=== PATIENT | female | born 1935 | race Caucasian/White ===

== ENCOUNTER 2017-02-22 16:25 | Observation (INO) ==
[2017-02-22] MEDS ORDERED: NITROGLYCERIN 2% OINT 1 INCH/GM PACK TOP STA (18:02)
[2017-02-22] MEDS ORDERED: ONDANSETRON 4 MG/2 ML VIAL IV STA (18:02)
[2017-02-22] MEDS ORDERED: MORPHINE 2 MG/1 ML SYRINGE IV STA (18:02)
[2017-02-22] MEDS ORDERED: ASPIRIN 325 MG TABLET PO STA (18:02)
[2017-02-22] MEDS ORDERED: ALUM/MAG/SIMETH/LIDO VISC 1:1 30 ML BOTTLE PO STA (18:02)
[2017-02-22 18:24] LABS: Basophils % 0.2 % (0.0-0.8); Eosinophils # 0.2 10*3/uL (0.0-0.87); Eosinophils % 2.7 % (0.00-10.9); Hematocrit 32.1 VOL% (35.7-47.0); Hemoglobin 10.3 GM/DL (12.0-16.0); Immature Granulocytes % 0.5 %; Immature Granulocytes Absolute 0.03 #; Lymphocytes # 0.6 10*3/uL (1.4-4.0); Lymphocytes % 9.4 % (21.3-54.2); Mean Corpuscular HGB Conc 32.1 GM/DL (32-36); Mean Corpuscular Hemoglobin 29 PG (27-34); Mean Corpuscular Volume 90.9 FL (87-102); Mean Platelet Volume 10.8 FL (9.6-12.0); Monocytes # 0.8 10*3/uL (0.11-0.8); Monocytes % 11.9 % (1.7-12.7); Neutrophils # 4.8 10*3/uL (1.4-7.4); Neutrophils % 75.3 % (38.7-73.9); Platelet Count 220 T/CUMM (130-400); Red Blood Count 3.53 MC/CUMM (3.8-5.5); Red Cell Distribution Width 14.7 % (9.3-17.3); White Blood Count 6.4 T/CUMM (4-12)
[2017-02-22] MEDS ORDERED: NITROGLYCERIN 2% OINT 1 INCH/GM PACK TOP ONE (18:28)
[2017-02-22] MEDS ORDERED: ONDANSETRON 4 MG/2 ML VIAL ONE (18:28)
[2017-02-22] MEDS ORDERED: MORPHINE 2 MG/1 ML SYRINGE ONE (18:29)
[2017-02-22] MEDS ORDERED: ASPIRIN 325 MG TABLET ONE (18:29)
[2017-02-22] MEDS ORDERED: ALUM/MAG/SIMETH/LIDO VISC 1:1 30 ML BOTTLE PO ONE (18:29)
[2017-02-22 18:30] LABS: INR 1.1; PT Patient Result 11.3 SECS
[2017-02-22] MEDS ORDERED: ALBUTEROL/IPRATROPIUM 3 ML NEB RESP TX STA (18:33)
[2017-02-22] MEDS ORDERED: FUROSEMIDE 40 MG/4 ML VIAL IV STA (18:33)
[2017-02-22 18:38] LABS: Magnesium 2.1 MG/DL (1.8-2.4)
[2017-02-22 18:45] LABS: Alanine Aminotransferase 12 U/L (13-56); Alkaline Phosphatase 73 U/L (45-117); Aspartate Amino Transferase 10 U/L (0-37); Bilirubin,Total < 0.39 MG/DL (0.2-1.0); Blood Urea Nitrogen 15 MG/DL (7-18); Calcium 8.5 MG/DL (8.5-10.1); Glucose 97 MG/DL (74-106); Osmolality,Calculated 281.3 MOS/KG (273-304); Potassium 4.9 MMOL/L (3.5-5.1); Sodium 141 MMOL/L (136-145); Total Protein 6.5 G/DL (6.4-8.3)
--- NOTE | 2017-02-22 18:45 | XRay Report ---
XR chest 1V portable Indication: Chest pain. Comparison: Chest x-ray 12/19/2016 Technique: Portable AP chest was performed. Findings: Postoperative changes from previous sternotomy appears stable. Borderline to mild cardiomegaly is suggested and appears stable. Atherosclerotic calcification of the aortic knob is stable. Volume loss within the left chest is demonstrated with a small portion of the left upper lobe remaining aerated. Overall appearance has changed little since comparison study. The right lung is clear. Bones and soft tissues demonstrate no evidence of interval change. Impression: 1. Stable interval appearance of the chest. No evidence of active cardiac pulmonary disease. 02/22/2017 6:41 PM PROCEDURE INTERPRETED AT [facility] DEPARTMENT OF RADIOLOGY Final Report Signed by: Dr. Juwan Dunbar
--- NOTE | 2017-02-22 18:46 | Emergency Department Note ---
Lalo Arteaga Manpreet, am scribing for, and in the presence of, Dalton Nation MD 18:16. Rios Arteaga Charles R, MD, personally performed the services described in this documentation, ascribed by Gasper May in my presence, and it is both accurate and complete [id number] . Arrival - Arrival Chief Complaint: Chest Pain Stated Complaint: chest pain ED Nursing Triage Note: Brought in per EMS from [place] with c/o left sided chest pain onset 0300am. Describes as sharp. Denies nausea or shortness of breath. Mode of Arrival: Stretcher Limitations: No Limitations Source: Patient Time Seen by Provider: 02/22/17 17:05 - History of Present Illness HPI Narrative: Pt is an 81 y/o female, with PMHx of CHF, CAD, and HTN, who presents to the ED with CC of CP since 03:00 last night. Pt currently denies CP and states that the pain was similar to her previous episodes of cardiac pain. Pt took her medication at 04:00 last night and is complaint with her medications. Pts rivet driver is Dr. Padgett. No other pains/complaints reported to ED. Onset (ago): hour(s) Consistency: constant Severity: moderate Severity scale (1-10): 4 Date of Last Menstrual Period: hyst Allergies/Adverse Reactions: Allergies Allergy/AdvReac Type Severity Reaction Status Date / Time cephalexin Allergy Severe RASH Verified 02/22/17 16:37 Erythromycin Base Allergy Severe RASH Verified 02/22/17 16:37 Home Medications: Home Medications Medication Instructions Recorded Confirmed Type Atorvastatin [Lipitor] 40 mg PO BEDTIME 07/08/15 11/13/16 History Carvedilol 12.5 mg PO BID W/MEALS 07/08/15 11/13/16 History Clopidogrel [Plavix] 75 mg PO DAILY 07/08/15 11/13/16 History Donepezil [Aricept] 10 mg PO BEDTIME 07/08/15 11/13/16 History Ergocalciferol (Vitamin D2) 1 tablet PO FR@09 07/08/15 11/13/16 History [Vitamin D2] Furosemide 20 mg PO BID 07/08/15 11/13/16 History Gemfibrozil 600 mg PO BID W/MEALS 07/08/15 11/13/16 History Omeprazole 20 mg PO BID 07/08/15 11/13/16 History PARoxetine [Paxil] 20 mg PO DAILY 07/08/15 11/13/16 History Aspirin EC Tab 81 mg PO DAILY 09/15/15 11/13/16 History Acetaminophen Tab [Tylenol Tab] 650 mg PO Q6H PRN #0 tablet 09/16/15 11/13/16 Rx Albuterol Sulfate [Ventolin HFA] 2 puff INH Q6H PRN #1 inhaler 09/16/15 Rx LORazepam [Lorazepam] 1 mg PO BID PRN 01/09/16 11/13/16 History Famotidine Tab [Pepcid Tab] 20 mg PO BID 04/09/16 11/13/16 History Multivitamin (Intrinsic) 1 capsule PO BID 04/09/16 11/13/16 History [Trinsicon] Potassium Chloride Cap/Tab [K Dur] 20 meq PO DAILY 04/09/16 11/13/16 History Clindamycin HCl [Clindamycin Cap] 300 mg PO Q8HR #30 capsule 09/09/16 11/13/16 Rx Lidocaine 5% Patch [Lidoderm 5% 1 patch TRANSDERM DAILY #30 patch 09/09/1611/13 Rx Patch] Naproxen [Naprosyn Tab] 500 mg PO BID #60 tablet 10/14/16 11/13/16 Rx predniSONE TAB [PredniSONE] 20 mg PO DAILY #15 tablet 10/14/16 11/13/16 Rx HYDROcodone/ACETAMIN 5-325 [[place] 1 tablet PO Q6H PRN #20 tablet 11/04/16 Rx 5-325] Methocarbamol Tab [Robaxin Tab] 500 mg PO QID PRN #20 tablet 11/04/16 11/13/16 Rx Tizanidine HCl [Zanaflex] 2 mg PO Q6H #40 capsule 11/13/16 Rx predniSONE TAB [PredniSONE] 20 mg PO DAILY #15 tablet 11/13/16 Rx Review of System - Review of System 12 point system: reviewed and no additional remarkable complaints except as stated - Review of System Constitutional: Absent: chills, diaphoresis, fever, weakness Respiratory: Present: wheezing. Absent: respiratory distress Cardiovascular: Present: chest pain Gastrointestinal: Absent: abdominal pain, nausea, vomiting Musculoskeletal: Absent: arm pain, back pain, lower back pain Medical,Surgical,& Family Hx - Medical History Cardio: History of: CHF, CAD, Hypertension No history of: DC (X2 STENT DR PADGETT) Neurology: History of: Seizures (few in past no know reason) No history of: Dementia HEENT: History of: Eye Problem (MACULAR DEGENERATION) Endocrine: History of: Diabetes Mellitus (NIDDM) (DR TOOK OFF MEDS), Dyslipidemia No history of: Diabetes Mellitus (IDDM) Rheumatology: History of;: Rheumatoid Arthritis Respiratory: History of: Bronchitis, COPD, Respiratory Problems (FLUID L LOER LUNG EMPHYSEMA HX B SCOPE WITH THORACENTESIS) Comment Only: Intubation (only after surgery never very long) Genitourinary: History of: Recurring Urinary Tract Infections Gastrointestinal: History of: GERD, Gastrointestinal Bleed Musculoskeletal: History of: Back/Neck Problems (spinal stenosis), Musculoskeletal Problems Hematology: No history of: Blood Transfusion Reaction Other: History of: Anaphylaxis (KEFLEX ERYTHOMYCIN) No history of: Anesthesia Reactions - Surgical History Cardiac Surgeries: Sugical HX of: Cardiac Catheterization (stents), Cardiac Surgery (CABG) Thoracic Surgeries: Patient denies;: Organ Transplant Neurologic Surgeries: Patient denies: Neurologic Surgery Abdominal Surgeries: Surgical HX of: Appendectomy Reproductive Surgeries: Surgical HX of;: Hysterectomy, Tubal Ligation Orthopedic Surgeries: Surgical HX of;: Total Knee Replacement (LEFT) - Family History Family History: Reports;: Family Cancer (MOM SON), Family Diabetes (MOM), Family Heart Disease (BROTHERS 2), Family Hypertension (MOM 2 BROTHERS SON) - Social History Smoking Status: Never smoker Frequency of Alcohol Use: None Type of Drug Use: None Exam Vital Signs: Vital Signs Temperature 98.3 F 02/22/17 17:56 Pulse Rate 82 02/22/17 19:10 Respiratory Rate 20 02/22/17 19:10 Blood Pressure 246/86 02/22/17 18:30 O2 Sat by Pulse Oximetry 96 02/22/17 19:10 - General General appearance: alert, in no apparent distress - Head Head exam: Present: atraumatic, normocephalic, normal inspection - Eye Eye exam: Present: normal appearance, PERRL, EOMI - ENT ENT exam: Present: normal exam, normal oropharynx, mucous membranes moist, TM's normal bilaterally - Neck Neck exam: Present: normal inspection, full ROM, trachea midline. Absent: tenderness - Chest Chest inspection: Present: normal inspection, symmetric chest wall rise. Absent : tenderness - Respiratory Respiratory exam: Present: rales, wheezes. Absent: normal lung sounds bilaterally, accessory muscle use, respiratory distress - Cardiovascular Cardiovascular exam: Present: regular rate, normal rhythm, normal heart sounds. Absent: murmur, rubs, gallop - Abdominal Exam Abdominal exam: Present: soft. Absent: distention, tenderness, guarding - Extremities Exam Extremities exam: Present: normal inspection, full ROM. Absent: tenderness - Back Exam Back exam: Present: normal inspection, full ROM. Absent: tenderness - Neurological Exam Neurological exam: Present: alert, oriented X3, CN II-XII intact, reflexes normal - Psychiatric Psychiatric exam: Present: normal affect, normal mood - Skin Skin exam: Present: warm, dry, intact, normal color. Absent: pallor Course - Consultations Consultation #1: Hospitalist will admit patient Time: 19:21 Results - Labs CBC & BMP: 02/22/17 16:40 02/22/17 16:40 Lab Results: I have reviewed the patients labs Labs: Laboratory Tests 02/22/17 02/22/17 02/22/17 16:40 16:40 16:40 WBC 6.4 RBC 3.53 L Hgb 10.3 L Hct 32.1 L Neut % (Auto) 75.3 H Lymph % (Auto) 9.4 L Lymph # (Auto) 0.6 L INR PT Patient/Control Mix Sodium 141 Potassium 4.9 Chloride 104 Carbon Dioxide 31 Anion Gap 10.9 ALT 12 L B-Natriuretic Peptide 390 H Albumin 3.0 L Albumin/Globulin Ratio 0.8 L 02/22/17 16:40 WBC RBC Hgb Hct Neut % (Auto) Lymph % (Auto) Lymph # (Auto) INR 1.1 PT Patient/Control Mix 11.3 Sodium Potassium Chloride Carbon Dioxide Anion Gap ALT B-Natriuretic Peptide Albumin Albumin/Globulin Ratio - Diagnostic Findings Procedure: Chest x-ray: report reviewed by me (1. Stable interval appearance of chest. No evidence of active cardiac pulmonary disease.) Critical Care Time Critical Care Time: Yes Total Critical Care Time: 60 Disposition Clinical Impression: Chest pain, COPD (chronic obstructive pulmonary disease), Recurrent left pleural effusion, CAD (coronary artery disease), Pleural effusion, Congestive heart failure Case discussed with: patient Disposition: Still a Patient Condition: Stable Time of Disposition: 19:21
[2017-02-22] MEDS ORDERED: FUROSEMIDE 40 MG/4 ML VIAL ONE (19:09)
[2017-02-22] MEDS ORDERED: FUROSEMIDE 20 MG/2 ML VIAL ONE (19:09)
--- NOTE | 2017-02-22 19:56 | Hospitalist History & Physical ---
Assessment and Plan (1) History of congestive heart failure Status: Acute Current Visit: Yes (2) Chest pain Status: Acute Current Visit: Yes (3) CAD (coronary artery disease) Status: Chronic Current Visit: Yes (4) COPD (chronic obstructive pulmonary disease) Status: Chronic Assessment and plan: Our plan for this patient will be admission to telemetry. We will also order cardiac enzymes every 3 hours 2. We will consult cardiology. I have instructed the nurses to confirm her home medications and alert me when that is available. Will continue home as appropriate. Will continue Nitropaste and full dose aspirin at this time. Current Visit: Yes History of Present Illness Chief complaint: Chest pain History of present illness: Ms. Ibanez is a 81 year old female with past medical history significant for coronary artery disease, hypertension and COPD who was in normal state of health until 3 AM. At that time patient developed chest pain. Patient described sharp in nature and did not radiate. She denies diaphoresis or exertional component. The chest pain resolved. When she told her daughter about it her daughter wanted to have her checked out. She requested she be sent up to the emergency room and I was consulted to admit her. Home Medications Medication Instructions Recorded Confirmed Type Atorvastatin [Lipitor] 40 mg PO BEDTIME 07/08/15 11/13/16 History Carvedilol 12.5 mg PO BID W/MEALS 07/08/15 11/13/16 History Clopidogrel [Plavix] 75 mg PO DAILY 07/08/15 11/13/16 History Donepezil [Aricept] 10 mg PO BEDTIME 07/08/15 11/13/16 History Ergocalciferol (Vitamin D2) 1 tablet PO FR@09 07/08/15 11/13/16 History [Vitamin D2] Furosemide 20 mg PO BID 07/08/15 11/13/16 History Gemfibrozil 600 mg PO BID W/MEALS 07/08/15 11/13/16 History Omeprazole 20 mg PO BID 07/08/15 11/13/16 History PARoxetine [Paxil] 20 mg PO DAILY 07/08/15 11/13/16 History Aspirin EC Tab 81 mg PO DAILY 09/15/15 11/13/16 History Acetaminophen Tab [Tylenol Tab] 650 mg PO Q6H PRN #0 tablet 09/16/15 11/13/16 Rx Albuterol Sulfate [Ventolin HFA] 2 puff INH Q6H PRN #1 inhaler 09/16/15 Rx LORazepam [Lorazepam] 1 mg PO BID PRN 01/09/16 11/13/16 History Famotidine Tab [Pepcid Tab] 20 mg PO BID 04/09/16 11/13/16 History Multivitamin (Intrinsic) 1 capsule PO BID 04/09/16 11/13/16 History [Trinsicon] Potassium Chloride Cap/Tab [K Dur] 20 meq PO DAILY 04/09/16 11/13/16 History Clindamycin HCl [Clindamycin Cap] 300 mg PO Q8HR #30 capsule 09/09/16 11/13/16 Rx Lidocaine 5% Patch [Lidoderm 5% 1 patch TRANSDERM DAILY #30 patch 09/09/1611/13 Rx Patch] Naproxen [Naprosyn Tab] 500 mg PO BID #60 tablet 10/14/16 11/13/16 Rx predniSONE TAB [PredniSONE] 20 mg PO DAILY #15 tablet 10/14/16 11/13/16 Rx HYDROcodone/ACETAMIN 5-325 [[place] 1 tablet PO Q6H PRN #20 tablet 11/04/16 Rx 5-325] Methocarbamol Tab [Robaxin Tab] 500 mg PO QID PRN #20 tablet 11/04/16 11/13/16 Rx Tizanidine HCl [Zanaflex] 2 mg PO Q6H #40 capsule 11/13/16 Rx predniSONE TAB [PredniSONE] 20 mg PO DAILY #15 tablet 11/13/16 Rx Allergies Allergy/AdvReac Type Severity Reaction Status Date / Time cephalexin Allergy Severe RASH Verified 02/22/17 16:37 Erythromycin Base Allergy Severe RASH Verified 02/22/17 16:37 Medical,Surgical,& Family Hx - Medical History Cardio: History of: CHF, CAD, Hypertension No history of: [place] (X2 STENT DR DOOLEY) Neurology: History of: Seizures (few in past no know reason) No history of: Dementia HEENT: History of: Eye Problem (MACULAR DEGENERATION) Endocrine: History of: Diabetes Mellitus (NIDDM) ( TOOK OFF MEDS), Dyslipidemia No history of: Diabetes Mellitus (IDDM) Rheumatology: History of;: Rheumatoid Arthritis Respiratory: History of: Bronchitis, COPD, Respiratory Problems (FLUID L LOER LUNG EMPHYSEMA HX B SCOPE WITH THORACENTESIS) Comment Only: Intubation (only after surgery never very long) Genitourinary: History of: Recurring Urinary Tract Infections Gastrointestinal: History of: GERD, Gastrointestinal Bleed Musculoskeletal: History of: Back/Neck Problems (spinal stenosis), Musculoskeletal Problems Hematology: No history of: Blood Transfusion Reaction Other: History of: Anaphylaxis (KEFLEX ERYTHOMYCIN) No history of: Anesthesia Reactions - Surgical History Cardiac Surgeries: Sugical HX of: Cardiac Catheterization (stents), Cardiac Surgery (CABG) Thoracic Surgeries: Patient denies;: Organ Transplant Neurologic Surgeries: Patient denies: Neurologic Surgery Abdominal Surgeries: Surgical HX of: Appendectomy Reproductive Surgeries: Surgical HX of;: Hysterectomy, Tubal Ligation Orthopedic Surgeries: Surgical HX of;: Total Knee Replacement (LEFT) - Family History Family History: Reports;: Family Cancer (MOM SON), Family Diabetes (MOM), Family Heart Disease (BROTHERS 2), Family Hypertension (MOM 2 BROTHERS SON) - Social History Smoking Status: Never smoker Frequency of Alcohol Use: None Type of Drug Use: None 12 point system: reviewed and no additional remarkable complaints except as stated Exam - Constitutional Vitals: Period Temp Pulse Resp BP Sys/Ramon Pulse Ox Last 24 Hr 98.3 F-98.3 F 65-88 18-20 202-246/83-94 94-97 General appearance: normal weight - Head Head exam: Present: normal inspection - Eye Eye exam: Present: EOMI Pupils: Present: LATONYA - ENT ENT exam: Present: normal exam - Neck Neck exam: Present: normal inspection - Respiratory Respiratory exam: Present: clear to auscultation bilaterally - Cardiovascular Cardiovascular exam: Present: regular rate and rhythm - GI/Abdominal GI/Abdominal exam: Present: normal bowel sounds - Extremities Exam Extremities exam: Present: normal inspection - Back Exam Back exam: Present: normal inspection - Neurological Exam Neurological exam: Present: alert - Psychiatric Psychiatric exam: Present: normal affect, normal mood - Skin Skin exam: Present: normal color Results - Labs CBC & BMP: 02/22/17 16:40 02/22/17 16:40
[2017-02-22 20:24] LABS: Risk Ratio 3.65; VLDL CHOLESTEROL 16.6 MG/DL
[2017-02-22] MEDS ORDERED: hydrALAZINE 20 MG/1 ML VIAL IV ONE (21:33)
--- NOTE | 2017-02-22 22:47 | EKG Report ---
Stationary ECG Study [facility] Test Date: 02/22/2017 10:44:34 PM Pat Name: CARLY VALLADARES Department: Room: 270 Gender: F Integrated Program Teacher: NETTE : 1935 Requested by: Dalton Foster Order Number: [id number] Reading MD: DUARTE ZALDIVAR Intervals [place] Rate: 76 P: 69 [place]: 154 QRS: -51 QRSD: 106 T: -65 QT: 446 QTc: 476 Interpretive Statements SINUS RHYTHM POSSIBLE LEFT ATRIAL ENLARGEMENT MARKED LEFT AXIS DEVIATION INCOMPLETE RIGHT BUNDLE BRANCH BLOCK ST DEVIATION AND MODERATE T-WAVE ABNORMALITY, CONSIDER LATERAL ISCHEMIA ST DEVIATION AND MODERATE T-WAVE ABNORMALITY, CONSIDER INFERIOR ISCHEMIA Electronically Signed On 02-23-17 21:18:24 CDT by DUARTE ZALDIVAR [email or web address]
[2017-02-22] MEDS ORDERED: NAPROXEN 500 MG TABLET PO PRN (23:28)
[2017-02-23] MEDS ORDERED: NITROGLYCERIN 2% OINT 1 INCH/GM PACK TOP SCH
[2017-02-23 00:12] VITALS: BP 235/95
--- NOTE | 2017-02-23 01:01 | Discharge Summary ---
Hospital Course - Hospital Course Hospital Course: Ms. Ibanez is a 81 year old female with past medical history significant for coronary artery disease, hypertension and COPD who was in normal state of health until 3 AM. At that time patient developed chest pain. Patient described sharp in nature and did not radiate. She denies diaphoresis or exertional component. The chest pain resolved. When she told her daughter about it her daughter wanted to have her checked out. She requested she be sent up to the emergency room and I was consulted to admit her. I transferred the patient to telemetry from the ER. Patient got upset for some unknown reason. Patient decided that she wanted to go AMA. She signed the paperwork and was discharged from the hospital Diagnosis - Discharge Diagnosis (1) History of congestive heart failure Status: Acute (2) Chest pain Status: Acute (3) CAD (coronary artery disease) Status: Chronic (4) COPD (chronic obstructive pulmonary disease) Status: Chronic Discharge Plan - Discharge Data Disposition: Left Against Medical Advice - Discharge Medications No Action Atorvastatin [Lipitor] 40 mg PO BEDTIME Carvedilol 12.5 mg PO BID W/MEALS Clopidogrel [Plavix] 75 mg PO DAILY Donepezil [Aricept] 10 mg PO BEDTIME Furosemide 20 mg PO BID Gemfibrozil 600 mg PO BID W/MEALS Omeprazole 20 mg PO BID PARoxetine [Paxil] 20 mg PO DAILY Ergocalciferol (Vitamin D2) [Vitamin D2] 1 tablet PO FR@09 Aspirin EC Tab 81 mg PO DAILY Acetaminophen Tab [Tylenol Tab] 650 mg PO Q6H PRN #0 tablet PRN Reason: Fever > 100.4 Or Headache Albuterol Sulfate [Ventolin HFA] 2 puff INH Q6H PRN #1 inhaler PRN Reason: Shortness Of Breath/Wheezing LORazepam [Lorazepam] 1 mg PO BID PRN PRN Reason: Anxiety Multivitamin (Intrinsic) [Trinsicon] 1 capsule PO BID Potassium Chloride Cap/Tab [K Dur] 20 meq PO DAILY Famotidine Tab [Pepcid Tab] 20 mg PO BID Clindamycin HCl [Clindamycin Cap] 300 mg PO Q8HR #30 capsule Lidocaine 5% Patch [Lidoderm 5% Patch] 1 patch TRANSDERM DAILY #30 patch Naproxen [Naprosyn Tab] 500 mg PO BID #60 tablet HYDROcodone/ACETAMIN 5-325 [[place] 5-325] 1 tablet PO Q6H PRN #20 tablet PRN Reason: Pain Methocarbamol Tab [Robaxin Tab] 500 mg PO QID PRN #20 tablet PRN Reason: Muscle Pain Tizanidine HCl [Zanaflex] 2 mg PO Q6H #40 capsule predniSONE TAB [PredniSONE] 20 mg PO DAILY #15 tablet predniSONE TAB [PredniSONE] 20 mg PO DAILY #15 tablet - Follow Up or Referral - Forms/Instructions Exam - Constitutional Vitals: Period Temp Pulse Resp BP Sys/Raomn Pulse Ox Last 24 Hr 97.2 F 67 20 235/95 90 Discharge Results Labs on day of discharge: Labs from last 24 hours 02/22/17 21:11 Troponin I < 0.015 DS: Provider Date of admission: 02/22/17 19:34 Primary care physician: Leandro Diaz DO Attending physician on admission: Shakeel Mendez MD Consults: 02/22/17 19:51 Consult to Physician [CONS] Routine Comment: Consulting Provider: Cardiology - [facility] Consult to Specialist Group: Cardiology When should Consulting Provider be notified: In am Discharging clinician: Shakeel Mendez MD
--- NOTE | 2017-02-23 08:01 | EKG Report ---
Stationary ECG Study [facility] ER Test Date: 02/22/2017 4:34:51 PM Pat Name: CARLY VALLADARES Department: Room: 270 Gender: F Research Program Internship: DALE Carrera : 1935 Requested by: Dalton Foster Order Number: [id number] Reading MD: VICENTA FRITZ Intervals [place] Rate: 66 P: 66 [place]: 160 QRS: -50 QRSD: 90 T: 105 QT: 436 QTc: 450 Interpretive Statements SINUS RHYTHM aT 66 BPM POSSIBLE LEFT ATRIAL ENLARGEMENT POSSIBLE RIGHT VENTRICULAR CONDUCTION DELAY pr wp LEFTVENTRICULAR HYPERTROPHY AND ST-T CHANGE Electronically Signed On 02-23-17 12:25:38 CDT by VICENTA FRITZ [email or web address]
[2017-02-23] MEDS ORDERED: ASPIRIN 325 MG TABLET PO SCH (09:00)
[2017-02-23] MEDS ORDERED: PANTOPRAZOLE 40 MG TABLET PO SCH (09:00)
== END 2017-02-23 00:30 | disposition left against medical advice (07) ==
LOC: EDBD → EDUNIT# → N.ED 16:25 → N.EDINP 16:25 → N.TELES 19:56
PROVIDERS: ADMIT Internal Medicine; ATTEND Internal Medicine

== ENCOUNTER 2017-03-10 03:23 | Inpatient (IN) ==
[2017-03-10] MEDS ORDERED: ONDANSETRON 4 MG/2 ML VIAL IV STA (03:55)
[2017-03-10] MEDS ORDERED: SODIUM CHLORIDE 0.9% 500 ML IV STA (03:55)
[2017-03-10] MEDS ORDERED: PANTOPRAZOLE 40 MG VIAL IV STA (03:55)
--- NOTE | 2017-03-10 03:58 | Emergency Department Note ---
Dung Arteaga Hilary, am scribing for, and in the presence of, Dalton Nation MD 03:55. Rios Arteaga Charles R, MD, personally performed the services described in this documentation, ascribed by Huma Razo in my presence, and it is both accurate and complete 357 . Arrival - Arrival Chief Complaint: GI Bleed/Rectal Stated Complaint: nausea vomiting ED Nursing Triage Note: Patient to room via ems with c/o N/V/D x 6 days. She thinks it is food posion from some bad soup she ate. Mode of Arrival: Stretcher Limitations: No Limitations Source: Patient, RN Notes Reviewed Time Seen by Provider: 03/10/17 03:41 - History of Present Illness HPI Narrative: Pt is a 81 y/o white female brought into the ED via EMS for c/o bloody diarrhea which onset today after dinner. Pt reports eating minestrone soup at assisted living at [facility] and then noticed blood and diarrhea. She confirms abdominal pain and blood in diarrhea but denies chest pain. No other complaints or problems stated in the ED. Onset (ago): hour(s) Consistency: constant Allergies/Adverse Reactions: Allergies Allergy/AdvReac Type Severity Reaction Status Date / Time cephalexin Allergy Severe RASH Verified 03/10/17 03:29 Erythromycin Base Allergy Severe RASH Verified 03/10/17 03:29 Home Medications: Home Medications Medication Instructions Recorded Confirmed Type Atorvastatin [Lipitor] 40 mg PO BEDTIME 07/08/15 03/10/17 History Carvedilol 12.5 mg PO BID W/MEALS 07/08/15 03/10/17 History Clopidogrel [Plavix] 75 mg PO DAILY 07/08/15 03/10/17 History Donepezil [Aricept] 10 mg PO BEDTIME 07/08/15 03/10/17 History Ergocalciferol (Vitamin D2) 1 tablet PO FR@09 07/08/15 03/10/17 History [Vitamin D2] Furosemide 20 mg PO DAILY 07/08/15 03/10/17 History Omeprazole 20 mg PO BID 07/08/15 03/10/17 History PARoxetine [Paxil] 20 mg PO DAILY 07/08/15 03/10/17 History Famotidine Tab [Pepcid Tab] 20 mg PO BID 04/09/16 03/10/17 History Potassium Chloride Cap/Tab [K Dur] 20 meq PO DAILY 04/09/16 03/10/17 History Clindamycin HCl [Clindamycin Cap] 600 mg PO BID W/MEALS 03/10/17 03/10/17 History Gemfibrozil [Lopid] 600 mg PO BID W/MEALS 03/10/17 03/10/17 History Lisinopril 10 mg PO DAILY 03/10/17 03/10/17 History Mirabegron [Myrbetriq] 50 mg PO DAILY 03/10/17 03/10/17 History Trimethoprim 100 mg PO DAILY 03/10/17 03/10/17 History Review of System - Review of System 12 point system: reviewed and no additional remarkable complaints except as stated - Review of System Constitutional: Absent: fever Gastrointestinal: Present: abdominal pain, diarrhea, hematochezia Medical,Surgical,& Family Hx - Medical History Cardio: History of: CHF, CAD, Hypertension Comment Only: [place] (X2 STENT DR DOOLEY) Neurology: History of: Seizures (few in past no know reason) No history of: Dementia HEENT: History of: Eye Problem (MACULAR DEGENERATION) Endocrine: History of: Diabetes Mellitus (NIDDM) ( TOOK OFF MEDS), Dyslipidemia No history of: Diabetes Mellitus (IDDM) Rheumatology: History of;: Rheumatoid Arthritis Respiratory: History of: Bronchitis, COPD, Respiratory Problems (FLUID L LOER LUNG EMPHYSEMA HX B SCOPE WITH THORACENTESIS) Comment Only: Intubation (only after surgery never very long) Genitourinary: History of: Recurring Urinary Tract Infections Gastrointestinal: History of: GERD, Gastrointestinal Bleed Musculoskeletal: History of: Back/Neck Problems (spinal stenosis), Musculoskeletal Problems Hematology: No history of: Blood Transfusion Reaction Other: History of: Anaphylaxis (KEFLEX ERYTHOMYCIN) No history of: Anesthesia Reactions - Surgical History Cardiac Surgeries: Sugical HX of: Cardiac Catheterization (stents), Cardiac Surgery (CABG) Neurologic Surgeries: Patient denies: Neurologic Surgery Abdominal Surgeries: Surgical HX of: Appendectomy Reproductive Surgeries: Surgical HX of;: Hysterectomy, Tubal Ligation Orthopedic Surgeries: Surgical HX of;: Total Knee Replacement (LEFT) - Family History Family History: Reports;: Family Cancer (MOM SON), Family Diabetes (MOM), Family Heart Disease (BROTHERS 2), Family Hypertension (MOM 2 BROTHERS SON) - Social History Smoking Status: Never smoker Frequency of Alcohol Use: None Type of Drug Use: None Exam Vital Signs: Vital Signs Temperature 98.3 F 03/10/17 03:24 Pulse Rate 78 03/10/17 03:24 Respiratory Rate 20 03/10/17 03:24 Blood Pressure 134/72 03/10/17 03:24 O2 Sat by Pulse Oximetry 93 L 03/10/17 03:24 - General General appearance: alert, in no apparent distress - Head Head exam: Present: atraumatic, normocephalic - Eye Eye exam: Present: PERRL, EOMI. Absent: normal appearance (pale conjuctival) - ENT ENT exam: Present: mucous membranes moist, TM's normal bilaterally. Absent: mucous membranes dry - Neck Neck exam: Present: full ROM, trachea midline. Absent: tenderness - Chest Chest inspection: Present: symmetric chest wall rise. Absent: tenderness - Respiratory Respiratory exam: Present: normal lung sounds bilaterally. Absent: respiratory distress - Cardiovascular Cardiovascular exam: Present: normal rhythm, tachycardia, normal heart sounds. Absent: murmur, rubs, gallop - Abdominal Exam Abdominal exam: Present: soft, hyperactive bowel sounds. Absent: distention, tenderness - Rectal Exam Rectal exam: Present: other (grossly heme + per look and smell) - Extremities Exam Extremities exam: Present: full ROM. Absent: tenderness - Back Exam Back exam: Present: full ROM. Absent: tenderness - Neurological Exam Neurological exam: Present: alert, oriented X3, CN II-XII intact. Absent: motor sensory deficit - Psychiatric Psychiatric exam: Present: normal affect, normal mood - Skin Skin exam: Present: warm, dry, intact, normal color. Absent: rash Course - Consultations Consultation #1: Hospitalist will admit patient Time: 05:38 Results - Labs CBC & BMP: 03/10/17 04:09 03/10/17 04:09 Lab Results: I have reviewed the patients labs Labs: Laboratory Tests 03/10/17 04:09 WBC 12.5 H RBC 3.32 L Hgb 9.5 L Hct 30.2 L MCHC 31.5 L Neut % (Auto) 88.7 H Lymph % (Auto) 4.9 L Neut # (Auto) 11.1 H Lymph # (Auto) 0.6 L Disposition Clinical Impression: GI bleed, Recurrent left pleural effusion, History of congestive heart failure , Lower gastrointestinal hemorrhage, Acute blood loss anemia Case discussed with: patient Disposition: Still a Patient Condition: Stable
[2017-03-10 04:25] LABS: Basophils % 0.1 % (0.0-0.8); Eosinophils % 0.2 % (0.00-10.9); Hematocrit 30.2 VOL% (35.7-47.0); Hemoglobin 9.5 GM/DL (12.0-16.0); Immature Granulocytes % 1.4 %; Immature Granulocytes Absolute 0.17 #; Lymphocytes # 0.6 10*3/uL (1.4-4.0); Lymphocytes % 4.9 % (21.3-54.2); Mean Corpuscular HGB Conc 31.5 GM/DL (32-36); Mean Corpuscular Hemoglobin 29 PG (27-34); Mean Platelet Volume 10.1 FL (9.6-12.0); Monocytes # 0.6 10*3/uL (0.11-0.8); Monocytes % 4.7 % (1.7-12.7); Neutrophils # 11.1 10*3/uL (1.4-7.4); Neutrophils % 88.7 % (38.7-73.9); Platelet Count 286 T/CUMM (130-400); Red Blood Count 3.32 MC/CUMM (3.8-5.5); Red Cell Distribution Width 15.2 % (9.3-17.3); White Blood Count 12.5 T/CUMM (4-12)
[2017-03-10 04:34] LABS: PT Patient Result 11.1 SECS
[2017-03-10] MEDS ORDERED: ALBUTEROL 2.5 MG/3 ML NEB RESP TX PRN (04:44)
[2017-03-10 04:47] LABS: Alanine Aminotransferase 16 U/L (13-56); Albumin 2.9 G/DL (3.4-5.0); Alkaline Phosphatase 65 U/L (45-117); Aspartate Amino Transferase 6 U/L (0-37); Band Neutrophils 1 % (0-10); Bilirubin,Total < 0.39 MG/DL (0.2-1.0); Blood Urea Nitrogen 29 MG/DL (7-18); Calcium 7.8 MG/DL (8.5-10.1); Glucose 146 MG/DL (74-106); Lymphocytes 6 % (20-55); Magnesium 1.8 MG/DL (1.8-2.4); Myelocytes 1 %; Potassium 5.3 MMOL/L (3.5-5.1); Segmented Neutrophils 89 % (50-85); Sodium 143 MMOL/L (136-145); Total Cells Counted 100; Total Protein 5.9 G/DL (6.4-8.3); Troponin I Only < 0.015 NG/ML (0.00-0.045)
[2017-03-10 04:49] LABS: Ammonia 25 UMOL/L (11-32); Ovalocytes Few; Platelet Estimate Normal
--- NOTE | 2017-03-10 04:52 | Hospitalist History & Physical ---
Assessment and Plan (1) CAD (coronary artery disease) Status: Chronic Current Visit: No (2) COPD (chronic obstructive pulmonary disease) Status: Chronic Current Visit: No (3) Lower gastrointestinal hemorrhage Status: Acute Current Visit: No (4) Acute blood loss anemia Status: Acute Current Visit: No (5) History of congestive heart failure Status: Acute Assessment and plan: Our plan for this patient will include admission to ICU. Monitor H&H every 4 hours. Transfuse as needed. We will consult GI for their evaluation. Patient will be placed on a clear liquid diet. Vital signs are currently stable heart rate is not accelerated. Patient has a history of congestive heart failure will not schedule her on maintenance fluids. Will need to follow-up on her chemistry which is not available at the time of this dictation Current Visit: No History of Present Illness Chief complaint: Bloody diarrhea History of present illness: Ms. Ibanez is a 81 year old female was in her normal state of health until tonight. Patient ate some soup and sandwich. Soon thereafter she started noticing bloody diarrhea. She has been having some abdominal cramping. She denies chest pain and no really other complaints at this time. I was consulted to admit her through the emergency room. Home Medications Medication Instructions Recorded Confirmed Type Atorvastatin [Lipitor] 40 mg PO BEDTIME 07/08/15 11/13/16 History Carvedilol 12.5 mg PO BID W/MEALS 07/08/15 11/13/16 History Clopidogrel [Plavix] 75 mg PO DAILY 07/08/15 11/13/16 History Donepezil [Aricept] 10 mg PO BEDTIME 07/08/15 11/13/16 History Ergocalciferol (Vitamin D2) 1 tablet PO 07/08/15 11/13/16 History [Vitamin D2] Furosemide 20 mg PO BID 07/08/15 11/13/16 History Omeprazole 20 mg PO BID 07/08/15 11/13/16 History PARoxetine [Paxil] 20 mg PO DAILY 07/08/15 11/13/16 History Famotidine Tab [Pepcid Tab] 20 mg PO BID 04/09/16 11/13/16 History Potassium Chloride Cap/Tab [K Dur] 20 meq PO DAILY 04/09/16 11/13/16 History Clindamycin HCl [Clindamycin Cap] 600 mg PO BID W/MEALS 03/10/17 03/10/17 History Gemfibrozil [Lopid] 600 mg PO BID W/MEALS 03/10/17 03/10/17 History Lisinopril 10 mg PO DAILY 03/10/17 03/10/17 History Mirabegron [Myrbetriq] 50 mg PO DAILY 03/10/17 03/10/17 History Trimethoprim 100 mg PO DAILY 03/10/17 03/10/17 History Allergies Allergy/AdvReac Type Severity Reaction Status Date / Time cephalexin Allergy Severe RASH Verified 03/10/17 03:29 Erythromycin Base Allergy Severe RASH Verified 03/10/17 03:29 Medical,Surgical,& Family Hx - Medical History Cardio: History of: CHF, CAD, Hypertension Comment Only: [place] (X2 STENT DR DOOLEY) Neurology: History of: Seizures (few in past no know reason) No history of: Dementia HEENT: History of: Eye Problem (MACULAR DEGENERATION) Endocrine: History of: Diabetes Mellitus (NIDDM) (DR TOOK OFF MEDS), Dyslipidemia No history of: Diabetes Mellitus (IDDM) Rheumatology: History of;: Rheumatoid Arthritis Respiratory: History of: Bronchitis, COPD, Respiratory Problems (FLUID L LOER LUNG EMPHYSEMA HX B SCOPE WITH THORACENTESIS) Comment Only: Intubation (only after surgery never very long) Genitourinary: History of: Recurring Urinary Tract Infections Gastrointestinal: History of: GERD, Gastrointestinal Bleed Musculoskeletal: History of: Back/Neck Problems (spinal stenosis), Musculoskeletal Problems Hematology: No history of: Blood Transfusion Reaction Other: History of: Anaphylaxis (KEFLEX ERYTHOMYCIN) No history of: Anesthesia Reactions - Surgical History Cardiac Surgeries: Sugical HX of: Cardiac Catheterization (stents), Cardiac Surgery (CABG) Neurologic Surgeries: Patient denies: Neurologic Surgery Abdominal Surgeries: Surgical HX of: Appendectomy Reproductive Surgeries: Surgical HX of;: Hysterectomy, Tubal Ligation Orthopedic Surgeries: Surgical HX of;: Total Knee Replacement (LEFT) - Family History Family History: Reports;: Family Cancer (MOM SON), Family Diabetes (MOM), Family Heart Disease (BROTHERS 2), Family Hypertension (MOM 2 BROTHERS SON) - Social History Smoking Status: Never smoker Frequency of Alcohol Use: None Type of Drug Use: None 12 point system: reviewed and no additional remarkable complaints except as stated Exam - Constitutional Vitals: Period Temp Pulse Resp BP Sys/Ramon Pulse Ox Last 24 Hr 98.3 F-98.3 F 78-78 20-20 134-134/72-72 93 - General General appearance: alert, in no apparent distress - Head Head exam: Present: atraumatic, normocephalic - Eye Eye exam: Present: PERRL, EOMI. - ENT ENT exam: Present: mucous membranes moist, TM's normal bilaterally. - Neck Neck exam: Present: full ROM, trachea midline. - Chest Chest inspection: Present: symmetric chest wall rise. - Respiratory Respiratory exam: Present: normal lung sounds bilaterally. - Cardiovascular Cardiovascular exam: Present: normal rhythm, tachycardia, normal heart sounds. - Abdominal Exam Abdominal exam: Present: soft, hyperactive bowel sounds. - Rectal Exam Rectal exam: Present: Grossly bloody with a prominent smell consistent with GI bleeding - Extremities Exam Extremities exam: Present: full ROM. - Back Exam Back exam: Present: full ROM. - Neurological Exam Neurological exam: Present: alert, oriented X3, CN II-XII intact. - Psychiatric Psychiatric exam: Present: normal affect, normal mood - Skin Skin exam: Present: warm, dry, intact, normal color. Results - Labs CBC & BMP: 03/10/17 04:09
[2017-03-10] MEDS ORDERED: SODIUM CHLORIDE 0.9% 1,000 ML IV SCH (05:00)
--- NOTE | 2017-03-10 05:15 | EKG Report ---
Stationary ECG Study [facility] ER Test Date: 03/10/2017 4:13:25 AM Pat Name: CARLY VALLADARES Department: Room: Gender: F Housekeeping Assistant: : 1935 Requested by: Dalton Foster Order Number: [id number] Reading MD: KENNEDY DOOLEY Intervals Crane Rate: 68 P: 31 MD: 147 QRS: -33 QRSD: 82 T: 176 QT: 448 QTc: 465 Interpretive Statements SINUS RHYTHM WITH SINUS ARRHYTHMIA POSSIBLE LEFT ATRIAL ENLARGEMENT MARKED LEFT AXIS DEVIATION POSSIBLE RIGHT VENTRICULAR CONDUCTION DELAY LEFT VENTRICULAR HYPERTROPHY AND ST-T CHANGE Electronically Signed On 03-10-17 16:11:29 CDT by KENNEDY DOOLEY [email or web address]
[2017-03-10] MEDS ORDERED: ONDANSETRON 4 MG/2 ML VIAL ONE (05:24)
[2017-03-10] MEDS ORDERED: PANTOPRAZOLE 40 MG VIAL IV ONE (05:24)
[2017-03-10 05:55] LABS: Hemoglobin 8.4 GM/DL (12.0-16.0)
--- NOTE | 2017-03-10 07:12 | XRay Report ---
XR abdomen 2V Indication: Generalized abdominal pain, GI bleed Comparison: Abdominal x-ray dated July 30, 2015 Technique: Frontal views of the abdomen in the supine and left lateral decubitus position. Findings: Chest will be described in a separate dictation. Nonspecific nonobstructive bowel gas pattern. No free intraperitoneal air. Diffuse osteopenia. S-shaped curvature of the spine with multilevel degenerative change. There is suggestion of osseous fusion of the mid lumbar spine. IMPRESSION: No acute abnormality demonstrated. PROCEDURE INTERPRETED AT [facility] DEPARTMENT OF RADIOLOGY Final Report Signed by: Dr Irvin Peng
--- NOTE | 2017-03-10 07:44 | XRay Report ---
XR chest 1V portable Indication: SOB Comparison: Chest x-ray dated February 22, 2017 Technique: Single frontal view of the chest. Findings: Continued cardiomegaly status post sternotomy. Volume loss within the left chest again demonstrated. There is again grossly stable left mid and lower lung pleural-parenchymal abnormality. Visualized osseous and surrounding soft tissue structures appear grossly unchanged. IMPRESSION: No significant change from February 22, 2017. PROCEDURE INTERPRETED AT [facility] DEPARTMENT OF RADIOLOGY Final Report Signed by: Dr Irvin Peng
[2017-03-10 09:14] LABS: Hematocrit 24.5 VOL% (35.7-47.0); Hemoglobin 7.6 GM/DL (12.0-16.0)
[2017-03-10] MEDS: PANTOPRAZOLE 40 MG VIAL IV SCH ×2 (09:38→21:04)
--- NOTE | 2017-03-10 10:33 | Hospitalist Progress Note ---
Assessment and Plan - Time spent with patient Time spent with patient: Greater than 30 minutes (1) Lower gastrointestinal hemorrhage Status: Acute Assessment and plan: Hold plavix. Consult GI. Monitor H/H, transfuse if needed. Clear liquid diet. Current Visit: Yes (2) Acute blood loss anemia Status: Acute Assessment and plan: Hold plavix. Monitor H/H, transfuse as needed. Current Visit: Yes (3) COPD (chronic obstructive pulmonary disease) Status: Chronic Assessment and plan: Resume home meds Current Visit: No (4) Hyperlipidemia Status: Chronic Assessment and plan: Continue home meds. Current Visit: No (5) Congestive heart failure Status: Acute Assessment and plan: Continue home meds Current Visit: No (6) Hearing loss Status: Acute Current Visit: No Qualifiers: Laterality: bilateral Qualified Code(s): H91.93 - Unspecified hearing loss , bilateral Hospitalist: Subjective Interval history: Had 4 bloody loose bowel movement 4 times since this adm per report from pt. Deny fever, dizziness, chest pain or abd pain. Type & screen ordered. Exam - Constitutional Vitals: Period Temp Pulse Resp BP Sys/Ramon Pulse Ox Last 24 Hr 97.9 F-98.3 F 61-83 12-20 94-148/49-95 93-97 Exam: GENERAL: NAD, AAOx3 Pale.. HEENT: Pupils equally round and reactive to light, conjunctivae clear. TMs posadas and translucent. Normal lips, teeth and gums. NECK: Supple without mass. HEART: RRR, no murmur. CHEST: Normal shape, good air movement, no retractions. CV: RRR, no murmurs, 2+ peripheral pulses LUNGS: Clear to auscultation; no rales, rhonchi, or wheezes. ABDOMEN: Soft, nontender, and no hepatosplenomegaly. SKIN: No rash or edema. Pale LYMPH: No anterior or posterior cervical, or supraclavicular lymphadenopathy. NEURO: No gross motor deficits noted. Results - Labs CBC & BMP: 03/10/17 09:05 03/10/17 04:09 - Diagnostic Findings Procedure: Chest x-ray: other (Reviewed by me.)
--- NOTE | 2017-03-10 13:58 | Gastrointestinal Consult Note ---
Assessment and Plan (1) Lower gastrointestinal hemorrhage Status: Acute Assessment and plan: This is likely due to a diverticular bleed most likely in the right colon. The patient is due to get a tagged red blood cell scan which should demonstrate this , provided she is adequately bleeding to the threshold level. If she appears to have an early positive scan we may ask interventional radiology to consider doing arteriography in order to embolize the vessel directly. The patient has had 16 bowel movements in the last 23 hours. She has dropped her hematocrit down to 24% although she is being transfused now. She does not have colon cancer on her last colonoscopy done in March 2016, almost exactly a year ago. There is a possibility this may be an acute upper GI bleed however the patient is nauseous but not vomiting and I suspect she would have vomiting if this were the bleeding source. We will continue to monitor her in the ICU setting and transfuse as needed. Hematocrit and hemoglobins are being obtained after an appropriate time interval. Surgery remains an option but will hold off on this until we see how she does with bleeding scan and potentially arteriography. Current Visit: Yes (2) Acute blood loss anemia Status: Acute Assessment and plan: Patient is dropped her hematocrit from her baseline down to 24.5 percent. We will continue to watch for further drops and transfuse appropriately. The patient is getting a 2 unit transfusion at this time as well. I do not anticipate having to do a repeat colonoscopy. Current Visit: Yes (3) Personal history of colonic polyps Status: Acute Assessment and plan: I am going to have to research exactly what type of polyps these were upon removal. This will determine how quickly the patient needs repeat colonoscopy. Current Visit: Yes (4) GERD (gastroesophageal reflux disease) Status: Acute Assessment and plan: The patient's symptoms of reflux are rather minimal, we will cover her with some Protonix on at least a daily basis. Current Visit: Yes (5) Diverticulosis Status: Acute Assessment and plan: Probably the source the patient's current bleeding. She may ultimately require surgery if the bleeding cannot be brought under control with more conservative measures. Current Visit: Yes History of Present Illness Chief complaint: Probable lower GI bleed with hematocrit dropped to 24%. History of present illness: Ms. Ibanez is a 81 year old female who was seen by me back on 03/11/16 for what appeared to be a lower GI bleed in association with her pandiverticulosis at that time she did undergo colonoscopy on 03/12/16 after her hematocrit dropped down to 24% similar to her situation at this time. She was in her state of usual health up until about 3 PM yesterday afternoon when she ate some soup and a sandwich and started developing painless lower GI bleeding which started as bright red and became quite voluminous she had 4 episodes of bleeding at home 6 more in the emergency room when brought to the hospital and was admitted to the ICU at about 3 AM last night and has had another 5 bloody bowel movements this morning. She is not having undue cramping or pain with this. She is not having any fevers or chills. She denies intake of unusual foods such as steak tar tar, raw oysters or sushi. She has not had any interim episodes since last I saw her approximately a year ago. Her colonoscopy did demonstrate some polyps --but I do not see a pathology report in the computer for these though hot biopsies were obtained. I will need to research this further. Otherwise the patient is doing fairly well although she is feeling somewhat weak and dizzy. Her hematocrit has dropped down to 24.5 %. There is no family history of colon cancer polyps. The patient's primary care provider is Dr. Carson Diaz. She does have some underlying reflux for which she takes omeprazole. Home Medications Medication Instructions Recorded Confirmed Type Atorvastatin [Lipitor] 40 mg PO BEDTIME 07/08/15 03/10/17 History Carvedilol 12.5 mg PO BID W/MEALS 07/08/15 03/10/17 History Clopidogrel [Plavix] 75 mg PO DAILY 07/08/15 03/10/17 History Donepezil [Aricept] 10 mg PO BEDTIME 07/08/15 03/10/17 History Ergocalciferol (Vitamin D2) 1 tablet PO FR@07/08/15 03/10/17 History [Vitamin D2] Furosemide 20 mg PO DAILY 07/08/15 03/10/17 History Omeprazole 20 mg PO BID 07/08/15 03/10/17 History PARoxetine [Paxil] 20 mg PO DAILY 07/08/15 03/10/17 History Famotidine Tab [Pepcid Tab] 20 mg PO BID 04/09/16 03/10/17 History Potassium Chloride Cap/Tab [K Dur] 20 meq PO DAILY 04/09/16 03/10/17 History Clindamycin HCl [Clindamycin Cap] 600 mg PO BID W/MEALS 03/10/17 03/10/17 History Gemfibrozil [Lopid] 600 mg PO BID W/MEALS 03/10/17 03/10/17 History Lisinopril 10 mg PO DAILY 03/10/17 03/10/17 History Mirabegron [Myrbetriq] 50 mg PO DAILY 03/10/17 03/10/17 History Trimethoprim 100 mg PO DAILY 03/10/17 03/10/17 History Allergies Allergy/AdvReac Type Severity Reaction Status Date / Time cephalexin Allergy Severe RASH Verified 03/10/17 03:29 Erythromycin Base Allergy Severe RASH Verified 03/10/17 03:29 Medical,Surgical,& Family Hx - Medical History Cardio: History of: CHF, CAD, Hypertension, NM (X2 STENT DR DOOLEY) Neurology: History of: Seizures (few in past no know reason) No history of: Dementia HEENT: History of: Eye Problem (MACULAR DEGENERATION) Endocrine: History of: Diabetes Mellitus (NIDDM) ( TOOK OFF MEDS), Dyslipidemia No history of: Diabetes Mellitus (IDDM) Rheumatology: History of;: Rheumatoid Arthritis Respiratory: History of: Bronchitis, COPD, Intubation (only after surgery never very long), Respiratory Problems (FLUID L LOER LUNG EMPHYSEMA HX B SCOPE WITH THORACENTESIS) Genitourinary: History of: Recurring Urinary Tract Infections Gastrointestinal: History of: GERD, Gastrointestinal Bleed Musculoskeletal: History of: Back/Neck Problems (spinal stenosis), Musculoskeletal Problems (frequent Right shoulder dislocation) Hematology: No history of: Blood Transfusion Reaction Other: History of: Anaphylaxis (KEFLEX ERYTHOMYCIN) No history of: Anesthesia Reactions - Surgical History Cardiac Surgeries: Sugical HX of: Cardiac Catheterization (stents), Cardiac Surgery (CABG x 3) Neurologic Surgeries: Patient denies: Neurologic Surgery Abdominal Surgeries: Surgical HX of: Appendectomy Reproductive Surgeries: Surgical HX of;: Hysterectomy, Tubal Ligation Orthopedic Surgeries: Surgical HX of;: Total Knee Replacement (LEFT) - Family History Family History: Reports;: Family Cancer (MOM SON), Family Diabetes (MOM), Family Heart Disease (BROTHERS 2), Family Hypertension (MOM 2 BROTHERS SON) - Social History Smoking Status: Former smoker Frequency of Alcohol Use: None Type of Drug Use: None Review of systems: Constitutional: Denies fever, chills, nausea, and vomiting Eyes: Denies dry eyes, and scleral icterus HENT: Denies headaches Cardiovascular: Denies acute chest pain and claudication Respiratory: Denies shortness of breath, wheezing, and difficulty breathing, denies cough Gastrointestinal: As noted in the HPI Genitourinary: Denies dysuria and hematuria Neurologic: The patient has some cataracts which have induced some mild bilateral vision loss, but no loss of sensation Musculoskeletal: She does admit to some joint swelling, joint stiffness, and muscular weakness Psychiatric: Denies depression and jessica symptoms Heme-Lymph: She does have some easy bruising, but no lymph node enlargement or tenderness, night sweats, excessive bleeding Allergies-immunologic: Denies pruritus and rhinorrhea Exam - Constitutional Vitals: Period Temp Pulse Resp BP Sys/Ramon Pulse Ox Last 24 Hr 97.5 F-98.3 F 61-97 12-25 93-154/37-95 93-97 General appearance: over weight Exam: Constitutional: Well-developed, well-nourished, alert, and in no acute distress Head and face: Head: Normocephalic atraumatic Eyes: Conjunctiva without injection, no gross scleral icterus, pupils equal and round bilaterally, some periorbital edema is noted and the patient appears to be sleep deprived. Ears: Intact to conversation in both ears Nose: External appearance is normal, nares patent Mouth: Oral mucous membranes moist without erythema dentition noted to be without erosion in the lower arch anteriorly, the upper arch and molars are edentulous. Neck: Normal appearance, no masses or tenderness, trachea midline Thyroid: Gland midline and appropriate size for age Respiratory: Normal respiratory effort, clear to auscultation without wheezes, rhonchi or rales Cardiovascular: Regular rate and rhythm, normal S1, S2, the exam is without rubs, murmurs or gallops. Gastrointestinal: Nontender to palpation, normal active bowel sounds, tone normal without rigidity or guarding, no masses present, no hepatomegaly, no spleen tip felt. No rectal exam obtained however photographs were reviewed did demonstrate wu maroon stool coming out of her rectum. Lymphatic: Neck without adenopathy, axilla without lymphadenopathy present Musculoskeletal: Right and left lower extremities without evidence of edema , the patient has a scar noted on her left knee consistent with previous knee replacement. Skin and subcutaneous tissue: No rashes or ulcerations noted, normal skin turgor, digits and nails without clubbing/cyanosis/deformities. Neurologic: The patient is grossly oriented to person place and time, cranial nerves show tongue movements are normal with normal tongue extrusion midline, light touch sensation is intact. Psychiatric: No hallucinations or delusions are present, does not appear depressed Results - Labs CBC & BMP: 03/10/17 09:05 03/10/17 04:09
[2017-03-10] MEDS ORDERED: PROMETHAZINE INJ 25 MG in SODIUM CHLORIDE 0.9% 50 ML IV PRN (16:00)
--- NOTE | 2017-03-10 16:18 | Inventional Radiology Consult ---
IR Consult - Data of Consult Patient: new to practice Consult date: 03/10/17 Requesting Physician: Jaya Freeman - Consult Narrative Reason for consult: multiple bloody bowel movements History of present illness: Marcelle is a 81 year old F with h/o diverticulosis and recent admission for anemia and multiple bloody bowel movements. She has minimal abdominal pain. No N/V. No chest pain. There is no SOB. She has had similar issues in the past. Last colonoscopy was done late 2015 with no mass and multiple diverticula. - Home Medications and Allergies Home Medications: Home Medications Medication Instructions Recorded Confirmed Type Atorvastatin [Lipitor] 40 mg PO BEDTIME 07/08/15 03/10/17 History Carvedilol 12.5 mg PO BID W/MEALS 07/08/15 03/10/17 History Clopidogrel [Plavix] 75 mg PO DAILY 07/08/15 03/10/17 History Donepezil [Aricept] 10 mg PO BEDTIME 07/08/15 03/10/17 History Ergocalciferol (Vitamin D2) 1 tablet PO 07/08/15 03/10/17 History [Vitamin D2] Furosemide 20 mg PO DAILY 07/08/15 03/10/17 History Omeprazole 20 mg PO BID 07/08/15 03/10/17 History PARoxetine [Paxil] 20 mg PO DAILY 07/08/15 03/10/17 History Famotidine Tab [Pepcid Tab] 20 mg PO BID 04/09/16 03/10/17 History Potassium Chloride Cap/Tab [K Dur] 20 meq PO DAILY 04/09/16 03/10/17 History Clindamycin HCl [Clindamycin Cap] 600 mg PO BID W/MEALS 03/10/17 03/10/17 History Gemfibrozil [Lopid] 600 mg PO BID W/MEALS 03/10/17 03/10/17 History Lisinopril 10 mg PO DAILY 03/10/17 03/10/17 History Mirabegron [Myrbetriq] 50 mg PO DAILY 03/10/17 03/10/17 History Trimethoprim 100 mg PO DAILY 03/10/17 03/10/17 History Allergies/Adverse Reactions: Allergies Allergy/AdvReac Type Severity Reaction Status Date / Time cephalexin Allergy Severe RASH Verified 03/10/17 03:29 Erythromycin Base Allergy Severe RASH Verified 03/10/17 03:29 12 point system: reviewed and no additional remarkable complaints except as stated Medical,Surgical,& Family Hx - Medical History Cardio: History of: CHF, CAD, Hypertension, ND (X2 STENT DR DOOLEY) Neurology: History of: Seizures (few in past no know reason) No history of: Dementia HEENT: History of: Eye Problem (MACULAR DEGENERATION) Endocrine: History of: Diabetes Mellitus (NIDDM) (DR TOOK OFF MEDS), Dyslipidemia No history of: Diabetes Mellitus (IDDM) Rheumatology: History of;: Rheumatoid Arthritis Respiratory: History of: Bronchitis, COPD, Intubation (only after surgery never very long), Respiratory Problems (FLUID L LOER LUNG EMPHYSEMA HX B SCOPE WITH THORACENTESIS) Genitourinary: History of: Recurring Urinary Tract Infections Gastrointestinal: History of: GERD, Gastrointestinal Bleed Musculoskeletal: History of: Back/Neck Problems (spinal stenosis), Musculoskeletal Problems (frequent Right shoulder dislocation) Hematology: No history of: Blood Transfusion Reaction Other: History of: Anaphylaxis (KEFLEX ERYTHOMYCIN) No history of: Anesthesia Reactions - Surgical History Cardiac Surgeries: Sugical HX of: Cardiac Catheterization (stents), Cardiac Surgery (CABG x 3) Neurologic Surgeries: Patient denies: Neurologic Surgery Abdominal Surgeries: Surgical HX of: Appendectomy Reproductive Surgeries: Surgical HX of;: Hysterectomy, Tubal Ligation Orthopedic Surgeries: Surgical HX of;: Total Knee Replacement (LEFT) - Family History Family History: Reports;: Family Cancer (MOM SON), Family Diabetes (MOM), Family Heart Disease (BROTHERS 2), Family Hypertension (MOM 2 BROTHERS SON) - Social History Smoking Status: Former smoker Frequency of Alcohol Use: None Type of Drug Use: None Exam - Labs CBC & BMP: 03/10/17 09:05 03/10/17 04:09 Lab Results: I have reviewed the past 24 hour labs Labs: INR 1.0 03/10/17 04:09 Image Studies: NM GI tagged red cell scan looks possibly positive. Waiting on delayed imaging to determine if need for CTA or go straight to catheter based angio. - Constitutional Vitals: Period Temp Pulse Resp BP Sys/Ramon Pulse Ox Last 24 Hr 97.5 F-98.3 F 61-97 12-25 93-154/37-95 93-97 General appearance: over weight - Eye Eye exam: Present: EOMI, conjunctival injection - Respiratory Respiratory exam: Present: clear to auscultation bilaterally - Cardiovascular Cardiovascular exam: Present: regular rate and rhythm Peripheral pulses: 2+: Common Femoral (R) - GI/Abdominal GI/Abdominal exam: Present: hyperactive bowel sounds - Neurological Exam Neurological exam: Present: alert, oriented X3 - Psychiatric Psychiatric exam: Present: normal affect, normal mood - Skin Skin exam: Present: normal color, dry
[2017-03-10] MEDS: DEXTROSE 5% LACTATED RINGERS 1,000 ML IV SCH (18:05)
[2017-03-10 23:01] LABS: Hematocrit 21.6 VOL% (35.7-47.0); Hemoglobin 6.5 GM/DL (12.0-16.0)
[2017-03-11] MEDS ORDERED: ACETAMINOPHEN 325 MG TABLET PO ONE (04:39)
[2017-03-11] MEDS: DEXTROSE 5% LACTATED RINGERS 1,000 ML IV SCH ×3 (04:44→17:04)
--- NOTE | 2017-03-11 06:53 | Nuclear Medicine Report ---
GI Bleeding Study Date Performed: 03/10/17 Radiopharmaceutical: 25 mCi Tc-99m PYP labeled RBCs I.V. Clinical Information: h/o diverticulosis and anemia with multiple bloody bowel movements but no hemodynamic instability and with no compliants Comparison: None available Technique: Dynamic images of the abdomen and pelvis were obtained at 1 minute frames for 5 minutes and 5 minute frames for 60 minutes. Findings: Flow images do not demonstrate active extravasation or area of abnormal collection to suggest brisk hemorrhage. On the standard imaging, there is an area of activity suggested within the right upper quadrant which appears somewhat globular and does not track along bowel. 30 minute delayed images however does suggest possibility of abnormal activity within the hepatic flexure/transverse colon. Given the slow rate of change, this may represent minimal active hemorrhage which could be below threshold for angiography visualization. Conclusion: Possible weakly positive bleeding within the right colon near the hepatic flexure transverse colon. Given the minimal change management consultant 1 hour, rate may be below threshold for catheter based angiography. The patient is hemodynamically stable with no complaints and no recent bloody bowel movements. CT angiography will be requested with GI bleeding protocol 2 determine localization of active bleeding. Continued conservative management otherwise. PROCEDURE INTERPRETED AT [facility] DEPARTMENT OF RADIOLOGY MTDD
[2017-03-11 07:12] LABS: Hematocrit 30.7 VOL% (35.7-47.0); Hemoglobin 10.1 GM/DL (12.0-16.0)
[2017-03-11 07:41] LABS: Calcium 7.4 MG/DL (8.5-10.1); Magnesium 1.9 MG/DL (1.8-2.4); Osmolality,Calculated 293.8 MOS/KG (273-304); Potassium 4.8 MMOL/L (3.5-5.1)
--- NOTE | 2017-03-11 07:50 | Gastrointestinal Progress Note ---
Assessment and Plan (1) Lower gastrointestinal hemorrhage Status: Acute Assessment and plan: This is likely due to a diverticular bleed most likely in the right colon. The patient is due to get a tagged red blood cell scan which should demonstrate this , provided she is adequately bleeding to the threshold level. If she appears to have an early positive scan we may ask interventional radiology to consider doing arteriography in order to embolize the vessel directly. The patient has had 16 bowel movements in the last 23 hours. She has dropped her hematocrit down to 24% although she is being transfused now. She does not have colon cancer on her last colonoscopy done in March 2016, almost exactly a year ago. There is a possibility this may be an acute upper GI bleed however the patient is nauseous but not vomiting and I suspect she would have vomiting if this were the bleeding source. We will continue to monitor her in the ICU setting and transfuse as needed. Hematocrit and hemoglobins are being obtained after an appropriate time interval. Surgery remains an option but will hold off on this until we see how she does with bleeding scan and potentially arteriography. 03/11/17--the patient has had a large volume of bleeding from the rectum over the evening time, despite this with her transfusion of 4 units yesterday she has increased her hematocrit up to 30.7% (after dropping down to 21.6% before the transfusion). The tagged red blood cell scan was initially suspicious but a follow-up scan seems to show the bleeding coming from the right colon. I discussed the case with Hugo Jaffe yesterday and I think we will hold off on doing the CTA and see if the patient would qualify directly for a mesenteric angiogram specifically looking at the right colonic artery off of the SMA, as this will be therapeutic and the patient is required 4 unit transfusion thus far and still appears to be actively bleeding. Current Visit: Yes (2) Acute blood loss anemia Status: Acute Assessment and plan: Patient is dropped her hematocrit from her baseline down to 24.5 percent. We will continue to watch for further drops and transfuse appropriately. The patient is getting a 2 unit transfusion at this time as well. I do not anticipate having to do a repeat colonoscopy. 03/11/17--The patient was transfused 4 units of packed red blood cells yesterday. She does have a history of CHF and will prophylactically give her 20 mg of IV Lasix. She does not appear to be in florid CHF at this time. We will continue to watch her closely. I have written for a BMP tomorrow to keep tabs on her potassium and renal function. Every 12 hours H&H's should be adequate for this patient. Daily CBCs written for the next 3 days. Transfusion parameters previously written. Current Visit: Yes (3) Personal history of colonic polyps Status: Acute Assessment and plan: I am going to have to research exactly what type of polyps these were upon removal. This will determine how quickly the patient needs repeat colonoscopy. Current Visit: Yes (4) GERD (gastroesophageal reflux disease) Status: Acute Assessment and plan: The patient's symptoms of reflux are rather minimal, we will cover her with some Protonix on at least a daily basis. 03/11/17--Patient symptoms appear to be under control. Current Visit: Yes (5) Diverticulosis Status: Acute Assessment and plan: Probably the source the patient's current bleeding. She may ultimately require surgery if the bleeding cannot be brought under control with more conservative measures. 03/11/17--This patient has pandiverticulosis and this is likely the source of her bleeding on the right side. We really did not see any bleeding from the small bowel, we did her last colonoscopy approximately a year ago. Current Visit: Yes Gastroenterology - PN: Subj Interval history: The patient is continuing to believe this morning she is still putting out blood in her stool and a follow-up delayed image from the tagged red blood cell scan shows positivity coming from the right colon. We are attempting to get interventional radiology to perform arteriography specifically to the SMA/right colic artery. Hopefully the flow will be enough that they will be able to discern what vessel is feeding the bleeding diverticulum, if it is active enough. The patient is complaining of orthopedic type pain in her right shoulder which she states "pops in and out of joint", and in her hips. She has been n.p.o. since midnight. Exam (Progress Note) - Constitutional Vitals: Period Temp Pulse Resp BP Sys/Ramon Pulse Ox Last 24 Hr 97.5 F-98.8 F 58-97 12-25 93-175/37-83 92-100 General appearance: no acute distress - Head Head exam: Present: normocephalic - Eye Eye exam: Present: EOMI Pupils: Present: LATONYA - ENT ENT exam: Present: normal exam - Respiratory Respiratory exam: Present: clear to auscultation bilaterally - Cardiovascular Cardiovascular exam: Present: regular rate and rhythm - GI/Abdominal GI/Abdominal exam: Present: normal bowel sounds, soft. Absent: distended, guarding, tenderness, rebound - Neurological Exam Neurological exam: Present: alert, oriented X3. Absent: CN II-XII intact Results - Labs CBC & BMP: 03/11/17 07:04 03/11/17 07:04
[2017-03-11] MEDS: PANTOPRAZOLE 40 MG VIAL IV SCH ×2 (08:00→21:01)
[2017-03-11] MEDS ORDERED: FUROSEMIDE 20 MG/2 ML VIAL IV ONE (08:00)
[2017-03-11] MEDS: ACETAMINOPHEN 325 MG TABLET PO PRN ×2 (08:07→19:06)
[2017-03-11] MEDS: traMADol 50 MG TABLET PO PRN ×3 (08:07→21:01)
--- NOTE | 2017-03-11 09:54 | CT Report ---
CT angio abd/pel GI Bleed TECHNIQUE: Axial CT images of the Abdomen and Pelvis were obtained during the arterial phase of contrast injection. 3-D vascular MIPS reconstructions and multiplanar reformats were evaluated. Omnipaque 350, 100 cc was administered intravenously with no immediate complication. Dose reduction: This CT exam was performed using one or more of the following dose reduction techniques: Automated exposure control, automated adjustment of the mA and/or KV according to patient size, or use of iterative reconstruction technique. COMPARISON: Nuclear medicine GI bleeding scan CLINICAL HISTORY: Admitted with anemia and multiple bloody bowel movements. Possible area of active bleeding in the right colon on the nuclear medicine tagged Red cell scan. Overnight, the patient's hematocrit has increased from 21-30.7, suggesting cessation of any active bleeding. CTA FINDINGS: The descending thoracic aorta is nonaneurysmal with multifocal atherosclerotic plaque. The abdominal aorta is nonaneurysmal. Celiac artery demonstrates mild-moderate focal stenosis and small atherosclerotic plaque proximally with minimal post stenotic dilatation. Superior mesenteric artery is widely patent. On the arterial phase images, there is no definite area of active extravasation of contrast into the right colon as questioned on the prior nuclear medicine GI bleeding study. Additionally, on the delayed images there is no pooling of contrast to suggest active but decreased flow rate hemorrhage visualized. Bilateral renal arteries demonstrate minimal scattered atherosclerotic plaque and no significant luminal stenosis. Inferior mesenteric artery is patent with minimal proximal stenosis. Distal aorta and pelvic branches are essentially patent with minimal scattered atherosclerotic plaque. Common femoral artery is patent bilaterally with minimal atherosclerotic plaque. NON--CTA FINDINGS: A moderate-sized left pleural effusion is noted. Additionally, this area demonstrates mild peripheral enhancement and may represent a developing empyema. Right lung base is predominantly clear with minimal atelectatic changes. ABDOMEN: Liver/Gallbladder: No abnormal enhancing lesions. No biliary ductal dilatation. No gallstones. Portal vein is patent. Spleen: No acute findings. Pancreas: No acute findings. Adrenals: Within normal limits in appearance. Kidneys: Both kidneys are somewhat atrophic but otherwise enhance symmetrically with no focal abnormality. There is no evidence of hydronephrosis. Bowel/mesentery: Small bowel is nondilated. There is no free fluid/air within the abdomen. There is extensive diverticulosis throughout the colon. There is no suggestion of acute diverticulitis. There is a small. Local fat-containing hernia. Retroperitoneum: No evidence of aortic aneurysm or significant retroperitoneal adenopathy. PELVIS: No free fluid. Bladder is mildly distended but otherwise unremarkable. There has been a prior hysterectomy. No adenopathy. BONES: No acute or suspicious osseous abnormalities are identified. Multilevel degenerative changes noted with moderate to advanced disc space loss at the lower lumbar spine. No suspicious osseous lesions are identified. IMPRESSION: 1. No evidence of active extravasation throughout the bowel to explain patient's reported continuous GI bleeding. Of note, the patient's hematocrit has stabilized overnight with transfusion and likely this represents an intermittent bleed. 2. Left pleural effusion with suggestion of possible enhancing rim may represent a developing empyema. Consider fluid sampling and/or drainage catheter placement of an clinically indicated. 03/11/2017 9:33 AM PROCEDURE INTERPRETED AT [facility] ([facility]) DEPARTMENT OF RADIOLOGY Final Report Signed by: Hugo Jaffe
--- NOTE | 2017-03-11 12:38 | Physician Query Form ---
CLICK EDIT DOCUMENT TO SELECT QUERY ANSWER --> OK --> SIGN Quita Dunbar RN, CCDS Certified Clinical Gas Station Attendant W) [phone] (f) [phone] [email or web address]: Make your selection(s) from the choices in EACH section by typing an "x" and enter comments in the comment section. Please use your independent medical judgment in providing your response. This request does not imply that any particular answer is desired or expected. CLINICAL INDICATORS: (Providers should not edit this section) The medical record indicates that the patient was admitted with GI bleeding, "history of CHF and will prophylactically give her 20 mg of IV Lasix", on the : " does not appear to be in florid CHF at this". Please provide further specificity regarding CHF. TYPE: ( ) Systolic (HFrEF - heart failure with reduced systolic function/EF) ( ) Diastolic (HFpEF - heart failure with preserved systolic function/EF) ( ) Combined Systolic/Diastolic ( ) Other, please specify: ( x) Clinically unable to determine ( ) The patient does NOT have CHF COMMENTS: PLEASE ALSO DOCUMENT RESPONSE IN PROGRESS NOTES AND/OR DISCHARGE SUMMARY Use of terms such as suspected, likely, or probable (associated with a specific diagnosis that is being evaluated, monitored, or treated as if it exists) are acceptable and can be restated in the discharge summary if not ruled out. MTDD
--- NOTE | 2017-03-11 13:15 | Hospitalist Progress Note ---
Assessment and Plan - Time spent with patient Time spent with patient: Greater than 30 minutes (1) Lower gastrointestinal hemorrhage Status: Acute Assessment and plan: Hold plavix. GI f/u. Monitor H/H, transfuse if needed. NPO per GI. Current Visit: Yes (2) Acute blood loss anemia Status: Acute Assessment and plan: Hold plavix. Monitor H/H, transfuse as needed. Current Visit: Yes (3) COPD (chronic obstructive pulmonary disease) Status: Chronic Assessment and plan: Resume home meds Current Visit: No (4) Hyperlipidemia Status: Chronic Assessment and plan: Continue home meds. Current Visit: No (5) Congestive heart failure Status: Acute Assessment and plan: Continue home meds Current Visit: No (6) Hearing loss Status: Acute Current Visit: No Qualifiers: Laterality: bilateral Qualified Code(s): H91.93 - Unspecified hearing loss , bilateral Hospitalist: Subjective Interval history: 03/09/17: Pt states that her diarrhea improved significantly. Hb 10.1 this am. On NPO per GI. No fever, headache or hematuria reported. Will monitor H/H closely and transfuse if needed. 03/10/17: Had 4 bloody loose bowel movement 4 times since this adm per report from pt. Deny fever, dizziness, chest pain or abd pain. Type & screen ordered. Exam Exam - Constitutional Vitals: Period Temp Pulse Resp BP Sys/Ramon Pulse Ox Last 24 Hr 97.1 F-98.8 F 58-75 12-21 100-175/41-80 92-100 Exam: GENERAL: Lying in bed supine. NAD. AAOx3. HEENT: Pupils equally round and reactive to light, conjunctivae clear. TMs posadas and translucent. Normal lips, teeth and gums. NECK: Supple without mass. HEART: RRR, no murmur. CHEST: Normal shape, good air movement, no retractions. CV: RRR, no murmurs, 2+ peripheral pulses LUNGS: Clear to auscultation; no rales, rhonchi, or wheezes. ABDOMEN: Soft, nontender, and no hepatosplenomegaly. SKIN: No rash or edema. Pale LYMPH: No anterior or posterior cervical, or supraclavicular lymphadenopathy. NEURO: AAOx3. Can move extremities. Results - Labs CBC & BMP: 03/11/17 07:04 03/11/17 07:04
[2017-03-11 13:48] LABS: Hematocrit 26.7 VOL% (35.7-47.0); Hemoglobin 8.9 GM/DL (12.0-16.0)
--- NOTE | 2017-03-11 15:06 | Event Note ---
The patient did not get her CTA last night for unknown reasons. However, overnight she did receive her blood for a total of 4 units. Hematocrit this morning is 31 (previously 21) which is an appropriate response. She has continued to have small bloody bowel movements. At least three small bloody bowel movements have occurred today. However, CTA this morning did not demonstrate any areas of active hemorrhage. There is extensive diverticulosis. Today, in the ICU she is normotensive to slightly hypertensive with no significant abdominal pain. No nausea or vomiting. Additional history from the patient includes taking Plavix prior to admission which can significantly increased risk of bleeding from any of the diverticula throughout the colon. Currently, there is no indication for catheter based angiography.
[2017-03-11 20:29] LABS: Hematocrit 25.4 VOL% (35.7-47.0); Hemoglobin 8.4 GM/DL (12.0-16.0)
[2017-03-12] MEDS ORDERED: MORPHINE 2 MG/1 ML SYRINGE IV ONE (01:20)
[2017-03-12 02:47] LABS: Basophils % 0.3 % (0.0-0.8); Eosinophils # 0.4 10*3/uL (0.0-0.87); Eosinophils % 3.8 % (0.00-10.9); Hematocrit 24.1 VOL% (35.7-47.0); Hemoglobin 7.8 GM/DL (12.0-16.0); Immature Granulocytes % 1.2 %; Immature Granulocytes Absolute 0.13 #; Lymphocytes # 0.7 10*3/uL (1.4-4.0); Lymphocytes % 6.3 % (21.3-54.2); Mean Corpuscular HGB Conc 32.4 GM/DL (32-36); Mean Corpuscular Hemoglobin 29 PG (27-34); Mean Corpuscular Volume 90.3 FL (87-102); Mean Platelet Volume 10.5 FL (9.6-12.0); Monocytes # 1.1 10*3/uL (0.11-0.8); Monocytes % 10.6 % (1.7-12.7); Neutrophils # 8.3 10*3/uL (1.4-7.4); Neutrophils % 77.8 % (38.7-73.9); Platelet Count 169 T/CUMM (130-400); Red Blood Count 2.67 MC/CUMM (3.8-5.5); Red Cell Distribution Width 15.6 % (9.3-17.3); White Blood Count 10.7 T/CUMM (4-12)
[2017-03-12] MEDS ORDERED: HALOPERIDOL 5 MG/ML AMP IV ONE (03:05)
[2017-03-12 03:11] LABS: Calcium 7.2 MG/DL (8.5-10.1); Osmolality,Calculated 290.1 MOS/KG (273-304); Potassium 4.1 MMOL/L (3.5-5.1)
[2017-03-12] MEDS: DEXTROSE 5% LACTATED RINGERS 1,000 ML IV SCH ×3 (03:40→14:50)
--- NOTE | 2017-03-12 08:16 | Gastrointestinal Progress Note ---
Assessment and Plan - Time spent with patient Time spent with patient: Greater than 30 minutes (1) Lower gastrointestinal hemorrhage Status: Acute Current Visit: Yes (2) Acute blood loss anemia Status: Acute Current Visit: No (3) Other specified counseling Status: Acute Current Visit: Yes Exam (Progress Note) - Constitutional Vitals: Period Temp Pulse Resp BP Sys/Ramon Pulse Ox Last 24 Hr 97 F-98.7 F 59-86 12-22 96-157/47-100 92-96 Results - Labs CBC & BMP: 03/12/17 02:12 03/12/17 02:12 Note Addendum: PLEASE NOTE -- automatic citation of patient information is unavoidable in this electronic note. I have made a reasonable effort to review the information cited , but it is not a part of my evaluation, impression, or recommendation unless specifically discussed in the dictated text that follows. As well, voice recognition software was used in the creation of this clinical note. Reasonable effort was made to identify and correct gross errors. Despite proofreading, errors in dealer sales manager may be present, including nonsense verbiage at times. If you encounter such an error, please contact me at for discussion and correction. -- [place] Chief complaint: hematochezia Subjective: the patient is an 81-year-old female seen for follow-up of suspected lower gastrointestinal bleeding. She underwent a bleeding scan with "possible weakly positive bleeding within the right colon near the hepatic flexure." The patient subsequently underwent CTA, G.I. bleeding protocol, without evidence of active extravasation yesterday. The patient has far fewer reported bowel movements overnight. There has been no overt bleeding from any source reported overnight. She required one additional unit of packed red blood cells yesterday. This morning she reports feeling reasonably well. She agrees there has been no further bleeding overnight and no bowel movements at all this morning. She is having no discomfort per se. Medications: Tylenol, albuterol, D5 lactated ringers infusion, promethazine, ultram Review of Symptoms: 12 point review of symptoms was negative except as noted above Physical examination: Vital Signs: Current vital signs reviewed. General Appearance: lying in bed. Comfortable. No apparent distress. Head: Normocephalic. Eyes: no scleral icterus. No scleral injection. No conjunctival pallor. Oral Cavity: Odor of breath was normal. No drooling was observed. Lips showed no abnormalities. Lungs: Respiration rhythm and depth was normal. Cardiovascular: Heart rate and rhythm were normal. Abdomen: abdomen was not distended. Abdominal auscultation revealed no abnormalities. Ascites was not discovered. Abdominal palpation revealed no tenderness and no hepatosplenomegaly. Musculoskeletal System: musculoskeletal system was grossly normal. Neurological: level of consciousness was normal. Speech was normal. No coordination/cerebellum abnormalities were noted. Skin: Gen. appearance was normal. Color and pigmentation were normal. No skin lesions were appreciated. Laboratory: white blood count 10.7, hemoglobin 7.8, hematocrit 24.1, platelets 169, INR 1.0, PT 11.1, ALT 16, AST six, total bilirubin 0.4 Radiology: -- CTA G.I. bleeding protocol, March 11, 2017: no evidence of active extravasation throughout the bowel; left pleural effusion with suggestion of possible enhancing rim Impressions: 1. Lower gastrointestinal bleeding --this likely representing intermittent diverticular bleeding. At the moment, there does not appear to be active bleeding. I recommend continued monitoring with further transfusion as indicated , continued crystalloid resuscitation as indicated, and continued monitoring in the intensive care unit. Should bleeding resume, Dr. Freeman has previously recommended mesenteric angiography with interventional radiology in hopes of treating the culprit vascular bed directly. This would be a reasonable next step in my estimation. Failing this, diagnostic/therapeutic colonoscopy could be considered but is rarely successful in this type situation. 2. Other specified counseling -- Patient seen for greater than 30 minutes. Greater than 50% of this time was spent counseling regarding differential diagnosis, likely diagnosis,, diagnostic and therapeutic options, risks, benefits, and alternatives to procedures and medications, informed consent, and plan of care generally. Patient has expressed understanding and wishes to proceed. Recommendations: -- continued monitoring of blood counts with further transfusion as indicated -- continued crystalloid resuscitation as indicated -- consider angiography with interventional intent if bleeding resumes -- consider diagnostic/therapeutic colonoscopy if all else fails -- we will continue to follow with you
[2017-03-12] MEDS: PANTOPRAZOLE 40 MG VIAL IV SCH ×2 (08:49→21:27)
--- NOTE | 2017-03-12 13:39 | Hospitalist Progress Note ---
Assessment and Plan (1) Lower gastrointestinal hemorrhage Status: Acute Assessment and plan: Hold plavix. GI f/u. Monitor H/H, transfuse if needed. Torelating current diet well. Current Visit: Yes (2) Acute blood loss anemia Status: Acute Assessment and plan: Hold plavix. Monitor H/H, transfuse as needed. Current Visit: Yes (3) COPD (chronic obstructive pulmonary disease) Status: Chronic Assessment and plan: Resume home meds Current Visit: No (4) Hyperlipidemia Status: Chronic Assessment and plan: Continue home meds. Current Visit: No (5) Congestive heart failure Status: Acute Assessment and plan: Continue home meds Current Visit: No (6) Hearing loss Status: Acute Current Visit: No Qualifiers: Laterality: bilateral Qualified Code(s): H91.93 - Unspecified hearing loss , bilateral Hospitalist: Subjective Interval history: 03/09/17: Pt states that her diarrhea improved significantly. Hb 10.1 this am. On NPO per GI. No fever, headache or hematuria reported. Will monitor H/H closely and transfuse if needed. 03/10/17: Had 4 bloody loose bowel movement 4 times since this adm per report from pt. Deny fever, dizziness, chest pain or abd pain. Type & screen ordered. 03/11/17: Hb 7.8 this am<--8.4<--8.9<--10.1(am on 03/11/17), Diarrhea resolved per report from pt. No other major discomfort complaints. Tolerate clear liquid diet well. No fever, headache, vomiting blood, hematuria or rash. Plavix on hold this adm due to lower GI bleed. Has diverticulosis. GI f/u. Exam - Constitutional Vitals: Period Temp Pulse Resp BP Sys/Ramon Pulse Ox Last 24 Hr 97.9 F-98.7 F 65-86 12-22 96-154/47-100 92-96 Exam: GENERAL: Lying in bed supine. NAD. AAOx3. HEENT: Pupils equally round and reactive to light, conjunctivae clear. TMs posadas and translucent. Normal lips, teeth and gums. NECK: Supple without mass. HEART: RRR, no murmur. CHEST: Normal shape, good air movement, no retractions. CV: RRR, no murmurs, 2+ peripheral pulses LUNGS: Clear to auscultation; no rales, rhonchi, or wheezes. ABDOMEN: Soft, nontender, and no hepatosplenomegaly. SKIN: No rash or edema. Pale LYMPH: No anterior or posterior cervical, or supraclavicular lymphadenopathy. NEURO: AAOx3. Can move extremities. Results - Labs CBC & BMP: 03/12/17 02:12 03/12/17 02:12
[2017-03-12 14:43] LABS: Hemoglobin 7.8 GM/DL (12.0-16.0)
[2017-03-12] MEDS: traMADol 50 MG TABLET PO PRN (17:02)
[2017-03-12 20:49] LABS: Hematocrit 23.3 VOL% (35.7-47.0); Hemoglobin 7.6 GM/DL (12.0-16.0)
[2017-03-13] MEDS: traMADol 50 MG TABLET PO PRN ×2 (01:12→20:54)
[2017-03-13] MEDS: DEXTROSE 5% LACTATED RINGERS 1,000 ML IV SCH (06:29)
[2017-03-13 06:52] LABS: Basophils % 0.1 % (0.0-0.8); Eosinophils # 0.3 10*3/uL (0.0-0.87); Hematocrit 29.6 VOL% (35.7-47.0); Hemoglobin 9.5 GM/DL (12.0-16.0); Immature Granulocytes % 1.2 %; Immature Granulocytes Absolute 0.12 #; Lymphocytes # 0.7 10*3/uL (1.4-4.0); Mean Corpuscular HGB Conc 32.1 GM/DL (32-36); Mean Corpuscular Hemoglobin 29 PG (27-34); Mean Corpuscular Volume 89.7 FL (87-102); Monocytes # 1.1 10*3/uL (0.11-0.8); Monocytes % 10.4 % (1.7-12.7); Neutrophils % 78.3 % (38.7-73.9); Platelet Count 181 T/CUMM (130-400); Red Cell Distribution Width 15.9 % (9.3-17.3); White Blood Count 10.2 T/CUMM (4-12)
--- NOTE | 2017-03-13 08:35 | Gastrointestinal Progress Note ---
Assessment and Plan - Time spent with patient Time spent with patient: Less than 30 minutes (1) Lower gastrointestinal hemorrhage Status: Acute Current Visit: Yes (2) Acute blood loss anemia Status: Acute Current Visit: No (3) Other specified counseling Status: Acute Current Visit: Yes Gastroenterology - PN: Subj Interval history: PLEASE NOTE -- automatic citation of patient information is unavoidable in this electronic note. I have made a reasonable effort to review the information cited , but it is not a part of my evaluation, impression, or recommendation unless specifically discussed in the dictated text that follows. As well, voice recognition software was used in the creation of this clinical note. Reasonable effort was made to identify and correct gross errors. Despite proofreading, errors in wood miller may be present, including nonsense verbiage at times. If you encounter such an error, please contact me at [phone] for discussion and correction. -- [place] Chief complaint: hematochezia Subjective: the patient is an 81-year-old female seen for follow-up of suspected lower gastrointestinal bleeding. The patient got two units of packed red blood cells with appropriate response yesterday. No bowel movements are reported overnight and the patient has not seen overt bleeding from any site. She reports feeling comfortable this morning with no gastrointestinal complaints. Medications: Tylenol, albuterol, D5 lactated ringers infusion, promethazine, ultram Review of Symptoms: 12 point review of symptoms was negative except as noted above Physical examination: Vital Signs: Current vital signs reviewed. General Appearance: lying in bed. Comfortable. No apparent distress. Head: Normocephalic. Eyes: no scleral icterus. No scleral injection. No conjunctival pallor. Oral Cavity: Odor of breath was normal. No drooling was observed. Lips showed no abnormalities. Lungs: Respiration rhythm and depth was normal. Cardiovascular: Heart rate and rhythm were normal. Abdomen: abdomen was not distended. Abdominal auscultation revealed no abnormalities. Ascites was not discovered. Abdominal palpation revealed no tenderness and no hepatosplenomegaly. Musculoskeletal System: musculoskeletal system was grossly normal. Neurological: level of consciousness was normal. Speech was normal. No coordination/cerebellum abnormalities were noted. Skin: Gen. appearance was normal. Color and pigmentation were normal. No skin lesions were appreciated. Laboratory: white blood count 10.7, hemoglobin 7.8, hematocrit 24.1, platelets 169, INR 1.0, PT 11.1, ALT 16, AST 6.0, total bilirubin 0.4 Radiology: reviewed Impressions: 1. Lower gastrointestinal bleeding -- no evidence of active bleeding at the moment. I recommend continued monitoring for at least one additional day with further transfusion as indicated and crystalloid resuscitation as indicated. The patient will need to follow up in gastroenterology during convalescence to discuss whether surveillance colonoscopy as indicated. 2. Other specified counseling -- Patient seen for less than 30 minutes. Greater than 50% of this time was spent counseling regarding differential diagnosis, likely diagnosis,, diagnostic and therapeutic options, risks, benefits, and alternatives to procedures and medications, informed consent, and plan of care generally. Patient has expressed understanding and wishes to proceed. Recommendations: -- continued monitoring of blood counts with further transfusion as indicated -- continued crystalloid resuscitation as indicated -- consider angiography with interventional intent if bleeding resumes -- follow-up in gastroenterology during convalescence -- we will continue to follow with you. Dr. Freeman will resume G.I. care for this patient tomorrow. Exam (Progress Note) - Constitutional Vitals: Period Temp Pulse Resp BP Sys/Ramon Pulse Ox Last 24 Hr 98 F-98.9 F 67-86 14-22 117-165/50-85 92-98 Results - Labs CBC & BMP: 03/13/17 06:31 03/12/17 02:12
[2017-03-13] MEDS: PANTOPRAZOLE 40 MG VIAL IV SCH (08:40)
--- NOTE | 2017-03-13 11:12 | Hospitalist Progress Note ---
Assessment and Plan (1) Lower gastrointestinal hemorrhage Status: Acute Assessment and plan: Hold plavix. GI f/u. Monitor H/H, transfuse if needed. Advance to GI soft diet today. Current Visit: Yes (2) Acute blood loss anemia Status: Acute Assessment and plan: Hold plavix. Monitor H/H, transfuse as needed. Current Visit: Yes (3) COPD (chronic obstructive pulmonary disease) Status: Chronic Assessment and plan: Resume home meds Current Visit: No (4) Hyperlipidemia Status: Chronic Assessment and plan: Continue home meds. Current Visit: No (5) Congestive heart failure Status: Acute Assessment and plan: Continue home meds Current Visit: No (6) Hearing loss Status: Acute Current Visit: No Qualifiers: Laterality: bilateral Qualified Code(s): H91.93 - Unspecified hearing loss , bilateral Hospitalist: Subjective Interval history: 03/13/17: Hb 9.5 this am. Diarrhea resolved per report from pt. No other major discomfort complaints. Tolerate clear liquid diet well. No fever, headache, vomiting blood, hematuria or rash. Plavix on hold this adm due to lower GI bleed 2/2 diverticulosis. GI f/u. Exam - Constitutional Vitals: Period Temp Pulse Resp BP Sys/Ramon Pulse Ox Last 24 Hr 97.1 F-98.9 F 72-86 14-22 117-165/51-85 93-98 Exam: GENERAL: Lying in bed supine. NAD. AAOx3. HEENT: Pupils equally round and reactive to light, conjunctivae clear. TMs posadas and translucent. Normal lips, teeth and gums. NECK: Supple without mass. HEART: RRR, no murmur. CHEST: Normal shape, good air movement, no retractions. CV: RRR, no murmurs, 2+ peripheral pulses LUNGS: Clear to auscultation; no rales, rhonchi, or wheezes. ABDOMEN: Soft, nontender, and no hepatosplenomegaly. SKIN: No rash or edema. Pale LYMPH: No anterior or posterior cervical, or supraclavicular lymphadenopathy. NEURO: AAOx3. Can move extremities. Results - Labs CBC & BMP: 03/13/17 06:31 03/12/17 02:12
[2017-03-13] MEDS ORDERED: ONDANSETRON 4 MG TABLET PO PRN (16:16)
[2017-03-14 05:03] LABS: Basophils % 0.1 % (0.0-0.8); Eosinophils # 0.4 10*3/uL (0.0-0.87); Eosinophils % 4.1 % (0.00-10.9); Hematocrit 28.7 VOL% (35.7-47.0); Hemoglobin 9.1 GM/DL (12.0-16.0); Immature Granulocytes % 0.6 %; Immature Granulocytes Absolute 0.05 #; Lymphocytes # 0.6 10*3/uL (1.4-4.0); Lymphocytes % 6.9 % (21.3-54.2); Mean Corpuscular HGB Conc 31.7 GM/DL (32-36); Mean Corpuscular Hemoglobin 29 PG (27-34); Mean Corpuscular Volume 90.5 FL (87-102); Mean Platelet Volume 10.4 FL (9.6-12.0); Monocytes % 11.2 % (1.7-12.7); Neutrophils # 6.8 10*3/uL (1.4-7.4); Neutrophils % 77.1 % (38.7-73.9); Platelet Count 179 T/CUMM (130-400); Red Blood Count 3.17 MC/CUMM (3.8-5.5); White Blood Count 8.8 T/CUMM (4-12)
--- NOTE | 2017-03-14 06:46 | Gastrointestinal Progress Note ---
Assessment and Plan (1) Lower gastrointestinal hemorrhage Status: Acute Assessment and plan: This is likely due to a diverticular bleed most likely in the right colon. The patient is due to get a tagged red blood cell scan which should demonstrate this , provided she is adequately bleeding to the threshold level. If she appears to have an early positive scan we may ask interventional radiology to consider doing arteriography in order to embolize the vessel directly. The patient has had 16 bowel movements in the last 23 hours. She has dropped her hematocrit down to 24% although she is being transfused now. She does not have colon cancer on her last colonoscopy done in March 2016, almost exactly a year ago. There is a possibility this may be an acute upper GI bleed however the patient is nauseous but not vomiting and I suspect she would have vomiting if this were the bleeding source. We will continue to monitor her in the ICU setting and transfuse as needed. Hematocrit and hemoglobins are being obtained after an appropriate time interval. Surgery remains an option but will hold off on this until we see how she does with bleeding scan and potentially arteriography. 03/11/17--the patient has had a large volume of bleeding from the rectum over the evening time, despite this with her transfusion of 4 units yesterday she has increased her hematocrit up to 30.7% (after dropping down to 21.6% before the transfusion). The tagged red blood cell scan was initially suspicious but a follow-up scan seems to show the bleeding coming from the right colon. I discussed the case with Hugo Jaffe yesterday and I think we will hold off on doing the CTA and see if the patient would qualify directly for a mesenteric angiogram specifically looking at the right colonic artery off of the SMA, as this will be therapeutic and the patient is required 4 unit transfusion thus far and still appears to be actively bleeding. 03/14/17--The patient is doing well and her hematocrit appears to be stable-- after dropping to 23% over the weekend. The patient is received a total of 6 units of packed red blood cells through her hospital stay and does not appear to be having any further bleeding. It was decided, by interventional radiology , not to take her to angiography. She is thought to have had a diverticular bleed from the right colon based on findings at the tagged red blood cell scan, and her previous colonoscopy. She has about a 25% chance of recurrence over the next 1 year. Would suggest leaving her off of anticoagulation entirely for the next 1 week. She is safe to discharge today in my opinion. Her hematocrit is 28.7 and shown stability over the last 24 hours. Current Visit: Yes (2) Acute blood loss anemia Status: Acute Assessment and plan: Patient is dropped her hematocrit from her baseline down to 24.5 percent. We will continue to watch for further drops and transfuse appropriately. The patient is getting a 2 unit transfusion at this time as well. I do not anticipate having to do a repeat colonoscopy. 03/11/17--The patient was transfused 4 units of packed red blood cells yesterday. She does have a history of CHF and will prophylactically give her 20 mg of IV Lasix. She does not appear to be in florid CHF at this time. We will continue to watch her closely. I have written for a BMP tomorrow to keep tabs on her potassium and renal function. Every 12 hours H&H's should be adequate for this patient. Daily CBCs written for the next 3 days. Transfusion parameters previously written. 03/14/17--Another 2 units packed red blood cells given over the weekend. The patient has maintained her stability after those units given, no further blood in the stool. A CT angiogram was obtained on 03/11/17 and failed to show any extravasation into the bowel, after this it was elected not to take her to angiography. Current Visit: Yes (3) Personal history of colonic polyps Status: Acute Assessment and plan: I am going to have to research exactly what type of polyps these were upon removal. This will determine how quickly the patient needs repeat colonoscopy. Patient will need repeat colonoscopy 5 years from her last--i.e. March 2021. Current Visit: Yes (4) GERD (gastroesophageal reflux disease) Status: Acute Assessment and plan: The patient's symptoms of reflux are rather minimal, we will cover her with some Protonix on at least a daily basis. 03/11/17--Patient symptoms appear to be under control. 03/14/17--No further complaints. Current Visit: Yes (5) Diverticulosis Status: Acute Assessment and plan: Probably the source the patient's current bleeding. She may ultimately require surgery if the bleeding cannot be brought under control with more conservative measures. 03/11/17--This patient has pandiverticulosis and this is likely the source of her bleeding on the right side. We really did not see any bleeding from the small bowel, we did her last colonoscopy approximately a year ago. 03/14/17--Right-Sided diverticular bleeding with thought to be the source of this patient's blood loss. If the patient develops recurrence would obtain tagged red blood cell scan and consider angiography. Current Visit: Yes Gastroenterology - PN: Subj Interval history: No new complaints in this patient. She is tolerating solids well. No further bleeding over the weekend. She would like to go home today. Exam (Progress Note) - Constitutional Vitals: Period Temp Pulse Resp BP Sys/Ramon Pulse Ox Last 24 Hr 97.1 F-99.5 F 63-84 18-20 145-161/71-82 92-97 General appearance: no acute distress - Head Head exam: Present: normocephalic - Eye Eye exam: Present: EOMI - Respiratory Respiratory exam: Present: clear to auscultation bilaterally. Absent: rhonchi, stridor, wheezes - Cardiovascular Cardiovascular exam: Present: regular rate and rhythm - GI/Abdominal GI/Abdominal exam: Present: normal bowel sounds, soft. Absent: distended, tenderness, rebound - Extremities Exam Extremities exam: Absent: edema - Neurological Exam Neurological exam: Present: alert, oriented X3 - Psychiatric Psychiatric exam: Present: normal affect, normal mood - Skin Skin exam: Present: warm Results - Labs CBC & BMP: 03/14/17 02:50 03/12/17 02:12
[2017-03-14] MEDS ORDERED: PANTOPRAZOLE 40 MG TABLET PO SCH (09:00)
[2017-03-14 10:26] VITALS: BP 154/69
--- NOTE | 2017-03-14 11:15 | Discharge Summary ---
<Leroy Reeves - Last Filed: 03/14/17 10:52> Hospital Course - Hospital Course Hospital Course: This is a very pleasant 81-year-old female that presented to the ED at [facility] on March 10, 2017 from [facility] via EMS for evaluation of nausea, vomiting, and diarrhea. The patient has a very complex medical history significant for congestive heart failure, coronary artery disease, hypertension, myocardial infarction, seizure disorder, macular degeneration, [id number] diabetes mellitus, dyslipidemia, rheumatoid arthritis, bronchitis, chronic obstructive pulmonary disease, chronic urinary tract infections, overactive bladder,gastrointestinal bleed, spinal stenosis, and GERD. The patient has a surgical history significant for cardiac catheterization with cardiac stent placement, coronary artery bypass graft, appendectomy, hysterectomy,tubal ligation, and left total knee replacement. Patient reported that she also experienced some bloody diarrhea that started on the day of presentation shortly after dinner. At the time of presentation, the patient attributed the above symptoms secondary to some minestrone soup that she ate at the [facility] facility. She reported that immediately after dinner she started to have abdominal discomfort and went to the bathroom. At that time, she noticed that she was having some bloody diarrhea. She informed the staff who then in turn, notified EMS for emergency assistance. Labs were obtained which reported mild leukocytosis with a white blood cell count at 12.5, hyperkalemia with a potassium noted at 5.3, BUN at 29, and blood glucose of 146. In addition the patient was noted to be anemic with a hemoglobin noted at 7.8 and hematocrit at 25.0. CT of the abdomen and pelvis was obtained which reported no evidence of active extravasation throughout the bowel to explain the patient's reported continuous GI bleed and left pleural effusion with suggestion of possible enhancing rim which could possibly represent empyema. The patient was subsequently admitted to the hospitalist services for continuation of care. The patient was seen by gastroenterology. A gastroenterology consult was requested. On March 10, 2017, the patient underwent a nuclear medicine gastrointestinal bleeding scan which reported positive bleeding within the right colon near the hepatic flexure transverse colon. The patient improved hemodynamically and no further bleeding was observed. She was evaluated by interventional radiology however, the patient's bleeding was stable at that time and she was deemed an appropriate for angiography intervention at that time. Today her condition is stable and she has not experienced any significant overnight events. Her hemoglobin and hematocrit are stable at 9.1 and 28.7. We feel that she is indeed appropriate for discharge home to follow-up with her machine stapler as previously ordered. We will continue to hold anticoagulant agents for the next week and then resume as previously ordered. Discharge Plan - Discharge Data Disposition: Disch To Home/Self Care - Discharge Medications Continue Atorvastatin [Lipitor] 40 mg PO BEDTIME Carvedilol 12.5 mg PO BID W/MEALS Donepezil [Aricept] 10 mg PO BEDTIME Furosemide 20 mg PO DAILY PARoxetine [Paxil] 20 mg PO DAILY Ergocalciferol (Vitamin D2) [Vitamin D2] 1 tablet PO FR@09 Potassium Chloride Cap/Tab [K Dur] 20 meq PO DAILY Famotidine Tab [Pepcid Tab] 20 mg PO BID Trimethoprim 100 mg PO DAILY Mirabegron [Myrbetriq] 50 mg PO DAILY Lisinopril 10 mg PO DAILY Gemfibrozil [Lopid] 600 mg PO BID W/MEALS Discontinued Clopidogrel [Plavix] 75 mg PO DAILY Omeprazole 20 mg PO BID Clindamycin HCl [Clindamycin Cap] 600 mg PO BID W/MEALS - Follow Up or Referral - Forms/Instructions Exam - Constitutional Vitals: Period Temp Pulse Resp BP Sys/Ramon Pulse Ox Last 24 Hr 98.1 F-99.5 F 63-84 18-21 145-161/69-82 92-97 Discharge Results Labs on day of discharge: Labs from last 24 hours 03/14/17 03/14/17 07:37 02:50 WBC 8.8 RBC 3.17 L Hgb 9.1 L Hct 28.7 L MCV 90.5 MCH 29 MCHC 31.7 L RDW 16.0 Plt Count 179 MPV 10.4 Neut % (Auto) 77.1 H Lymph % (Auto) 6.9 L Callaway % (Auto) 11.2 Eos % (Auto) 4.1 Baso % (Auto) 0.1 Neut # (Auto) 6.8 Lymph # (Auto) 0.6 L Call[place] # (Auto) 1.0 H Eos # (Auto) 0.4 Baso # (Auto) 0.0 Immature Gran % 0.6 Nucleated RBC % 0.0 Immature Gran # 0.05 Nucleated RBCs # 0.00 POC Glucose 112 H DS: Provider Date of admission: 03/10/17 04:44 Primary care physician: Leandro Diaz DO Attending physician on admission: Shakeel Mendez MD Consults: 03/10/17 04:46 Consult to Physician [CONS] Routine Comment: Gastrointestinal bleeding, seen last by you Consulting Provider: Jaya Freeman Consulting Provider Notified: Yes Consult to Specialist Group: Gastroenterology When should Consulting Provider be notified: In am Person Notified: ELLIE Date Notified: 03/10/17 Time Notified: 08:25 03/10/17 06:00 Consult to Pastoral Services [CONS] Routine Comment: Pastoral Screen: Request Coat Maker Visit Pastoral Screen Source of Request: Patient Discharging clinician: Leroy Reeves CNP <Dorothy Perdomo - Last Filed: 03/14/17 11:18> Hospital Course - Time spent with patient Time with patient DS: Less than 30 minutes Diagnosis - Discharge Diagnosis (1) Lower gastrointestinal hemorrhage Status: Resolved (2) Acute blood loss anemia Status: Resolved Discharge Plan - Discharge Data Condition at Discharge: Stable Discharge Diet: advance to your usual diet Activity: resume usual activities as tolerated Hygiene: no restrictions Weight Bearing at Discharge: weight bear as tolerated Driving: no restrictions Contact your physician if you experience:: Shortness of breath, Bleeding - Forms/Instructions Additional Discharge Instructions: Hold plavix for one week Exam - Constitutional General appearance: over weight - Head Head exam: Present: normocephalic, atraumatic - Eye Eye exam: Present: EOMI Pupils: Present: LATONYA - ENT ENT exam: Present: normal exam - Neck Neck exam: Present: normal inspection - Respiratory Respiratory exam: Present: clear to auscultation bilaterally. Absent: rhonchi, wheezes - Cardiovascular Cardiovascular exam: Present: regular rate and rhythm - GI/Abdominal GI/Abdominal exam: Present: normal bowel sounds, soft. Absent: tenderness, rebound - Extremities Exam Extremities exam: Present: normal inspection - Back Exam Back exam: Present: normal inspection - Neurological Exam Neurological exam: Present: alert, oriented X3 - Psychiatric Psychiatric exam: Present: normal affect, normal mood - Skin Skin exam: Present: warm, intact
[2017-03-14] MEDS: DEXTROSE 5% LACTATED RINGERS 1,000 ML IV SCH (12:12)
== END 2017-03-14 11:55 | disposition home health service (06) | DRG 378 ==
LOC: EDBD → EDUNIT# → N.ED 03:23 → SUATTDRO 04:44 → N.EDINP 04:44 → N.ICU 05:11 → N.2E 03-12 20:20
PROVIDERS: ADMIT Internal Medicine; ATTEND Internal Medicine

== ENCOUNTER 2017-09-03 13:38 | Inpatient (IN) ==
[2017-09-03] MEDS ORDERED: ONDANSETRON 4 MG/2 ML VIAL IM STA (13:57)
[2017-09-03] MEDS ORDERED: methylPREDNISolone SOD SUC 125 MG/2 ML VIAL IV STA (13:57)
[2017-09-03] MEDS ORDERED: LEVOFLOXACIN INJ 750 MG in PREMIX 1 EACH IV STA (13:57)
[2017-09-03] MEDS ORDERED: ALBUTEROL/IPRATROPIUM 3 ML NEB RESP TX STA (13:57)
[2017-09-03] MEDS ORDERED: LEVOFLOXACIN INJ 150 ML IV ONE (14:06)
[2017-09-03] MEDS ORDERED: ONDANSETRON 4 MG/2 ML VIAL ONE (14:07)
[2017-09-03] MEDS ORDERED: methylPREDNISolone SOD SUC 125 MG/2 ML VIAL ONE (14:07)
[2017-09-03] MEDS ORDERED: TERBUTALINE 1 MG/1 ML VIAL SUBCUT ONE (14:07)
[2017-09-03] MEDS: TERBUTALINE 1 MG/1 ML VIAL SUBCUT SCH ×2 (14:19→14:40)
[2017-09-03] MEDS ORDERED: ONDANSETRON 4 MG/2 ML VIAL IV STA (14:21)
[2017-09-03 14:37] LABS: Apearance,Urine CLEAR (Clear); Bilirubin,Urine Negative (Negative); Blood, Urine Moderate mg/dL (Negative); Glucose,Urine (UA) Negative (Negative); Hyaline Casts,Urine 1 /LPF (0-3); Ketones,Urine Negative (Negative); Nitrite,Urine Negative (Negative); Protein,Urine Negative; RBC,Urine 6 /HPF (0-4); Urine Color Yellow (Yellow); Urine Specific Gravity 1.013 (1.001-1.035); WBC,Urine 3 /HPF (0-6)
[2017-09-03 15:02] LABS: Basophils % 0.1 % (0.0-0.8); Eosinophils # 0.1 10*3/uL (0.0-0.87); Hematocrit 31.7 VOL% (35.7-47.0); Hemoglobin 10.2 GM/DL (12.0-16.0); Immature Granulocytes % 0.5 %; Immature Granulocytes Absolute 0.05 #; Lymphocytes # 1.4 10*3/uL (1.4-4.0); Mean Corpuscular HGB Conc 32.2 GM/DL (32-36); Mean Corpuscular Hemoglobin 29 PG (27-34); Mean Platelet Volume 10.7 FL (9.6-12.0); Monocytes # 1.2 10*3/uL (0.11-0.8); Monocytes % 11.9 % (1.7-12.7); Neutrophils # 7.4 10*3/uL (1.4-7.4); Neutrophils % 72.5 % (38.7-73.9); Platelet Count 196 T/CUMM (130-400); Red Blood Count 3.56 MC/CUMM (3.8-5.5); Red Cell Distribution Width 14.9 % (9.3-17.3); White Blood Count 10.2 T/CUMM (4-12)
[2017-09-03 15:10] LABS: Partial Thromboplastin Time 35.2 SECS (0-40)
[2017-09-03 15:47] LABS: Alanine Aminotransferase 13 U/L (13-56); Albumin 2.9 G/DL (3.4-5.0); Alkaline Phosphatase 80 U/L (45-117); Aspartate Amino Transferase 13 U/L (0-37); Blood Urea Nitrogen 16 MG/DL (7-18); Calcium 8.4 MG/DL (8.5-10.1); Glucose 92 MG/DL (74-106); Osmolality,Calculated 277.5 MOS/KG (273-304); Potassium 4.2 MMOL/L (3.5-5.1); Sodium 139 MMOL/L (136-145); Total Protein 7.1 G/DL (6.4-8.3); Troponin I Only < 0.015 NG/ML (0.00-0.045)
[2017-09-03] MEDS ORDERED: GLUCAGON 1 MG VIAL IM PRN (18:58)
[2017-09-03] MEDS ORDERED: ACETAMINOPHEN 325 MG TABLET PO PRN (18:58)
[2017-09-03] MEDS ORDERED: ONDANSETRON 4 MG/2 ML VIAL IV PRN (18:58)
[2017-09-03] MEDS ORDERED: DEXTROSE 50% 25 GM/50 ML VIAL IV PRN (18:58)
[2017-09-03] MEDS ORDERED: ALBUTEROL/IPRATROPIUM 3 ML NEB RESP TX PRN (19:33)
[2017-09-03] MEDS: ENOXAPARIN 40 MG/0.4 ML SYRINGE SUBCUT SCH (21:43)
[2017-09-03] MEDS: methylPREDNISolone SOD SUC 40 MG/1 ML VIAL IV SCH (21:43)
[2017-09-03] MEDS: DONEPEZIL 10 MG TABLET PO SCH (21:43)
[2017-09-03] MEDS: FAMOTIDINE 20 MG TABLET PO SCH (21:43)
[2017-09-03] MEDS: ATORVASTATIN 40 MG TABLET PO SCH (21:43)
[2017-09-03] MEDS: FERROUS SULFATE 325 MG TABLET PO SCH (21:43)
[2017-09-04] MEDS: ALBUTEROL/IPRATROPIUM 3 ML NEB RESP TX SCH ×4 (00:32→19:22)
[2017-09-04] MEDS ORDERED: FUROSEMIDE 40 MG/4 ML VIAL ONE (00:32)
[2017-09-04] MEDS: methylPREDNISolone SOD SUC 40 MG/1 ML VIAL IV SCH (04:01)
[2017-09-04 07:27] LABS: Albumin 2.8 G/DL (3.4-5.0); Bilirubin,Total 0.5 MG/DL (0.2-1.0); Calcium 8.3 MG/DL (8.5-10.1); Osmolality,Calculated 285.3 MOS/KG (273-304); Potassium 4.1 MMOL/L (3.5-5.1); Total Protein 6.4 G/DL (6.4-8.3)
[2017-09-04] MEDS ORDERED: TERBUTALINE 1 MG/1 ML VIAL SUBCUT PRN (07:34)
[2017-09-04] MEDS: TERBUTALINE 1 MG/1 ML VIAL SUBCUT SCH ×7 (07:35→07:41)
[2017-09-04] MEDS: LISINOPRIL 20 MG TABLET PO SCH (09:30)
[2017-09-04] MEDS: ASPIRIN EC 81 MG TABLET PO SCH (09:31)
[2017-09-04] MEDS: FERROUS SULFATE 325 MG TABLET PO SCH ×2 (09:31→20:24)
[2017-09-04] MEDS: CARVEDILOL 12.5 MG TABLET PO SCH ×3 (09:31→16:14)
[2017-09-04] MEDS: FAMOTIDINE 20 MG TABLET PO SCH ×2 (09:31→20:24)
[2017-09-04] MEDS: FUROSEMIDE 20 MG TABLET PO SCH ×2 (09:31→11:13)
[2017-09-04] MEDS: PANTOPRAZOLE 40 MG TABLET PO SCH (09:31)
[2017-09-04] MEDS: POTASSIUM CHLORIDE 20 MEQ TABLET PO SCH (09:31)
[2017-09-04] MEDS: PARoxetine 20 MG TABLET PO SCH (09:31)
[2017-09-04] MEDS: predniSONE 20 MG TABLET PO SCH (11:13)
[2017-09-04] MEDS: LEVOFLOXACIN INJ 750 MG in PREMIX 1 EACH IV SCH (15:27)
[2017-09-04] MEDS: ATORVASTATIN 40 MG TABLET PO SCH (20:24)
[2017-09-04] MEDS: DONEPEZIL 10 MG TABLET PO SCH (20:24)
[2017-09-04] MEDS: ENOXAPARIN 40 MG/0.4 ML SYRINGE SUBCUT SCH (20:24)
[2017-09-05] MEDS: ALBUTEROL/IPRATROPIUM 3 ML NEB RESP TX SCH ×3 (00:27→13:56)
[2017-09-05] MEDS: predniSONE 20 MG TABLET PO SCH (09:30)
[2017-09-05] MEDS: ASPIRIN EC 81 MG TABLET PO SCH (09:30)
[2017-09-05] MEDS: CARVEDILOL 12.5 MG TABLET PO SCH (09:30)
[2017-09-05] MEDS: PANTOPRAZOLE 40 MG TABLET PO SCH (09:30)
[2017-09-05] MEDS: LISINOPRIL 20 MG TABLET PO SCH (09:30)
[2017-09-05] MEDS: FERROUS SULFATE 325 MG TABLET PO SCH (09:30)
[2017-09-05] MEDS: FAMOTIDINE 20 MG TABLET PO SCH (09:30)
[2017-09-05] MEDS: FUROSEMIDE 20 MG TABLET PO SCH ×2 (09:31→12:27)
[2017-09-05] MEDS: POTASSIUM CHLORIDE 20 MEQ TABLET PO SCH (09:31)
[2017-09-05] MEDS: PARoxetine 20 MG TABLET PO SCH (09:31)
[2017-09-05] MEDS: Mirabegron [Myrbetriq] 50 MG PO SCH (14:48)
[2017-09-05] MEDS: LEVOFLOXACIN INJ 750 MG in PREMIX 1 EACH IV SCH (16:23)
[2017-09-05 16:27] VITALS: BP 140/63
== END 2017-09-05 17:40 | disposition home health service (06) | DRG 192 ==
LOC: EDUNIT# → EDBD → N.ED 13:38 → SUATTDRO 18:58 → N.EDINP 18:58 → N.5E 19:45
PROVIDERS: ADMIT Hospitalist; ATTEND Internal Medicine Nephrology